=== PATIENT | male | born 1970 | race Caucasian/White ===

== ENCOUNTER 2016-09-24 13:13 | Inpatient (IN) | payer OTHER ==
[2016-09-24 17:11] VITALS: BMI 22.5
--- NOTE | 2016-09-24 18:25 | HP ---
CIWA Score - CIWA Score Nausea/Vomitin-Mild Nausea/No Vomiting Muscle Tremors: 5 Anxiety: 4-Mod. Anxious/Guarded Agitation: 4-Moderately Restless Paroxysmal Sweats: 1-Minimal Palms Moist Orientation: 0-Oriented Tacttile Disturbances: 0-None Auditory Disturbances: 0-None Visual Disturbances: 0-None Headache: 0-None Present CIWA-Ar Total Score: 15 Admission ROS [facility]HS - HPI Chief Complaint: withdrawal sx Allergies/Adverse Reactions: Allergies Allergy/AdvReac Type Severity Reaction Status Date / Time No Known Allergies Allergy Verified 09/24/16 17:44 History of Present Illness: 46 years old male with long history of alcohol nicotine dependence, has copd hypertension hyperlipidemia bph, and depression, longest sobriety 6 months, is admitted to detox Exam Limitations: No Limitations - Ebola screening Have you traveled outside of the country in the last 21 days: No Have you had contact with anyone from an Ebola affected area: No Have you been sick,other than usual withdrawal symptoms: No Do you have a fever: No - Review of Systems Constitutional: Chills, Changes in sleep, Weight Stable EENT: reports: Other (eye glasses) Respiratory: reports: SOB with Exertion, Productive cough Cardiac: reports: No Symptoms Reported GI: reports: Nausea, Poor Fluid Intake, Indigestion, Abdominal cramping : reports: Urgency (bph) Musculoskeletal: reports: Muscle Weakness Integumentary: reports: No Symptoms Reported Neuro: reports: Tremors Endocrine: reports: No Symptoms Reported Hematology: reports: No Symptoms Reported Psychiatric: reports: Judgement Intact, Orientated x3, Depressed Other Systems: Reviewed and Negative Patient History - Patient Medical History Hx Anemia: No Hx Asthma: No Hx Chronic Obstructive Pulmonary Disease (COPD): Yes Hx Cancer: No Hx Cardiac Disorders: No Hx Congestive Heart Failure: No Hx Hypertension: Yes Hx Hypercholesterolemia: Yes Hx Pacemaker: No HX Cerebrovascular Accident: No Hx Seizures: No Hx Dementia: No Hx Diabetes: Yes Hx Gastrointestinal Disorders: No Hx Liver Disease: No Hx Genitourinary Disorders: No Hx Sexually Transmitted Disorders: No Hx Renal Disease (ESRD): No Hx Thyroid Disease: No Hx Human Immunodeficiency Virus (HIV): No Hx Hepatitis C: No Hx Depression: Yes Hx Suicide Attempt: No Hx Bipolar Disorder: No Hx Schizophrenia: No - Patient Surgical History Past Surgical History: No Hx Neurologic Surgery: No Hx Cataract Extraction: No Hx Cardiac Surgery: No Hx Lung Surgery: No Hx Breast Surgery: No Hx Breast Biopsy: No Hx Abdominal Surgery: No Hx Appendectomy: No Hx Cholecystectomy: No Hx Genitourinary Surgery: No Hx Orthopedic Surgery: No - PPD History Previous Implant?: Yes Documented Results: Negative w/o proof Implanted On Prior R Admission?: No PPD to be Administered?: Yes - Smoking Cessation Smoking history: Current every day smoker Have you smoked in the past 12 months: Yes Aproximately how many cigarettes per day: 20 Cigars Per Day: 0 Hx Chewing Tobacco Use: No Initiated information on smoking cessation: Yes 'Breaking Loose' booklet given: 09/24/16 - Substance & Tx. History Hx Alcohol Use: Yes Hx Substance Use: No Substance Use Type: Alcohol Hx Substance Use Treatment: Yes - Substances Abused Alcohol Route: Oral Frequency: Daily Amount used: BEER- 1 CASE Age of first use: 15 Date of Last Use: 09/24/16 Family Disease History - Family Disease History Family Disease History: Diabetes: Father, Mother, Respiratory: Father Other Family History: only child Admission Physical Exam S - Vital Signs Vital Signs: Vital Signs - 24 hr 09/24/16 17:10 Temperature 98.1 F Pulse Rate 92 H Respiratory 20 Rate Blood Pressure 153/99 - Physical General Appearance: Yes: Appropriately Dressed, Moderate Distress, Thin, Tremorous, Irritable, Sweating, Anxious HEENTM: Yes: Hearing grossly Normal, Normal ENT Inspection, Normocephalic, Normal Voice Respiratory: Yes: Chest Non-Tender, Lungs Clear, Normal Breath Sounds, No Respiratory Distress, No Accessory Muscle Use Neck: Yes: Supple, Trachea in good position Breast: Yes: Breasts Symetrical Cardiology: Yes: Regular Rhythm, Regular Rate, S1, S2 Abdominal: Yes: Non Tender, Soft Genitourinary: Yes: Within Normal Limits Back: Yes: Normal Inspection Musculoskeletal: Yes: Gait Steady (cane), Back pain, Muscle Pain, Muscle weakness (left leg) Extremities: Yes: Non-Tender, Tremors, Swelling, Erythema Neurological: Yes: Fully Oriented, Alert, Motor Strength 5/5, Normal Response, Depressed Affect Integumentary: Yes: Warm, Erythema Lymphatic: Yes: Within Normal Limits - Diagnostic (1) Alcohol dependence with uncomplicated withdrawal Current Visit: Yes Status: Acute (2) Nicotine dependence Current Visit: Yes Status: Acute Qualifiers: Nicotine product type: cigarettes Substance use status: in withdrawal Qualified Code(s): F17.213 - Nicotine dependence, cigarettes, with withdrawal (3) COPD (chronic obstructive pulmonary disease) Current Visit: Yes Status: Acute Qualifiers: COPD type: emphysema Emphysema type: other Qualified Code(s): J43.8 - Other emphysema (4) Hypertension Current Visit: Yes Status: Acute Qualifiers: Hypertension type: essential hypertension Qualified Code(s): I10 - Essential (primary) hypertension (5) Diabetes mellitus type II, controlled Current Visit: Yes Status: Acute Qualifiers: Diabetes mellitus complication status: without complication Diabetes mellitus half-way insulin use: without ferry terminal supervisor use Qualified Code(s): E11.9 - Type 2 diabetes mellitus without complications Comment: dietary control (6) Hyperlipidemia Current Visit: Yes Status: Chronic Qualifiers: Hyperlipidemia type: pure hypercholesterolemia Qualified Code(s): E78.0 - Pure hypercholesterolemia (7) BPH (benign prostatic hyperplasia) Current Visit: Yes Status: Acute Qualifiers: Prostatic enlargement morphology: non-nodular Lower urinary tract symptom presence: symptoms present Qualified Code(s): N40.1 - Enlarged prostate with lower urinary tract symptoms (8) Left leg weakness Current Visit: Yes Status: Acute Comment: cane (9) Fall (on) (from) unspecified stairs and steps, sequela Current Visit: Yes Status: Acute Qualifiers: Encounter type: sequela Qualified Code(s): W10.9XXS - Fall (on) ( from) unspecified stairs and steps, sequela Cleared for Admission [facility] - Detox or Rehab [facility] Level of Care: Medically Managed Detox Regimen/Protocol: Librium [facility] Breath Alcohol Content Breath Alcohol Content: 0 Urine Drug Screen - Results Drug Screen Negative: No Urine Drug Screen Results: BZO-Benzodiazepines
[2016-09-24] MEDS ORDERED: MAGNESIUM CITRATE 300 ML BOTTLE PO PRN (18:31)
[2016-09-24] MEDS ORDERED: diphenhydrAMINE HCL 50 MG CAPSULE PO PRN (18:31)
[2016-09-24] MEDS ORDERED: P-EPHED 60MG/TRIPROLIDI 2.5MG TABLET PO PRN (18:31)
[2016-09-24] MEDS ORDERED: chlordiazePOXIDE HCL 25 MG CAPSULE PO PRN (18:31)
[2016-09-24] MEDS ORDERED: hydrOXYzine PAMOATE 50 MG CAPSULE (FP) PO PRN (18:31)
[2016-09-24] MEDS ORDERED: MAGNESIUM HYDROX 2400MG/30ML ORAL SUSPENSION 30 ML CUP PO PRN (18:31)
[2016-09-24] MEDS ORDERED: MENTHOL/PHENOL 1 EACH UD MM PRN (18:31)
[2016-09-24] MEDS ORDERED: guaiFENesin/D-METHORPHAN HB 10 ML UNIT-DOSE CUPS PO PRN (18:31)
[2016-09-24] MEDS ORDERED: NICOTINE POLACRILEX 2 MG GUM BC PRN (18:31)
[2016-09-24] MEDS ORDERED: LOPERAMIDE HCL 2 MG CAPSULE PO PRN (18:31)
[2016-09-24] MEDS ORDERED: MAG HYDROX/AL HYDROX/SIMETH 30 ML UNIT-DOSE CUP PO PRN (18:31)
[2016-09-24] MEDS ORDERED: ALBUTEROL SO4 6.7 GM HFA INHALER IH PRN (18:43)
[2016-09-24] MEDS ORDERED: chlordiazePOXIDE HCL 25 MG CAPSULE PO ONE (19:00)
[2016-09-24] MEDS: LISINOPRIL 5 MG TABLET (FP) PO SCH (19:48)
[2016-09-24] MEDS ORDERED: CEPHALEXIN MONOHYDRATE 500 MG CAPSULE (UD) PO SCH (22:00)
[2016-09-24] MEDS: THIAMINE HCL 100 MG TABLET (FP) PO SCH (22:15)
[2016-09-24] MEDS: chlordiazePOXIDE HCL 25 MG CAPSULE PO SCH (22:15)
[2016-09-24] MEDS: RANITIDINE HCL 150 MG TABLET (FP) PO SCH (22:15)
[2016-09-24] MEDS: CEPHALEXIN MONOHYDRATE 500 MG CAPSULE (UD) PO SCH (22:15)
[2016-09-24] MEDS: BUDESONIDE/FORMETEROL FUMARATE 80/4.5 mcg INHALER IH SCH (22:16)
[2016-09-24] MEDS: FINASTERIDE 5 MG TABLET (FP) PO SCH (22:18)
[2016-09-24 22:38] LABS: URINE APPEARANCE CLEAR; URINE BILIRUBIN NEGATIVE (NEGATIVE); URINE BLOOD NEGATIVE (NEGATIVE); URINE COLOR YELLOW; URINE GLUCOSE (UA) NEGATIVE (NEGATIVE); URINE KETONE NEGATIVE (NEGATIVE); URINE LEUK ESTERASE NEGATIVE (NEGATIVE); URINE NITRITE NEGATIVE (NEGATIVE); URINE UROBILINOGEN 4.0 E.U/dl E.U./dl (0.2-1.0)
[2016-09-24 22:39] LABS: URINE PROTEIN 1+ (NEGATIVE)
[2016-09-24 22:41] LABS: URINE RBC 1 /hpf (0-3); URINE WBC <1 /hpf (3-5)
[2016-09-25] MEDS: chlordiazePOXIDE HCL 25 MG CAPSULE PO SCH ×4 (05:57→22:13)
[2016-09-25] MEDS: ACETAMINOPHEN 325 MG TABLET (FP) PO PRN ×2 (06:20→12:52)
--- NOTE | 2016-09-25 09:42 | PN ---
S CIWA - CIWA Score Nausea/Vomitin Muscle Tremors: 3 Anxiety: 3 Agitation: 2 Paroxysmal Sweats: 3 Orientation: 0-Oriented Tacttile Disturbances: 1-Very Mild Itch/Numbness Auditory Disturbances: 0-None Visual Disturbances: 0-None Headache: 0-None Present CIWA-Ar Total Score: 14 S Progress Note (SOAP) Subjective: interrupted sleep, sweats, anxious Objective: 09/25/16 09:42 Vital Signs Temperature 98.8 F 09/25/16 09:23 Pulse Rate 101 H 09/25/16 09:23 Respiratory Rate 20 09/25/16 09:23 Blood Pressure 148/93 09/25/16 09:23 O2 Sat by Pulse Oximetry (%) Laboratory Tests 09/24/16 09/25/16 21:30 06:14 POC Glucometer 140 Urine Color Yellow Urine Appearance Clear Urine pH 7.0 Ur Specific [place] 1.006 Urine Protein 1+ H Urine Glucose (UA) Negative Urine Ketones Negative Urine Blood Negative Urine Nitrite Negative Urine Bilirubin Negative Urine Urobilinogen 4.0 e.u/dl Ur Leukocyte Esterase Negative Urine RBC 1 Urine WBC <1 pending labs 01/30/17 12:40 pt aox3 in nad ambulating with cane 01/30/17 12:40 01/30/17 12:42 Assessment: 09/25/16 09:42 withdrawl sx's 01/30/17 12:40 Plan: cont. detox increase fluids f/up pending labs
[2016-09-25] MEDS: LISINOPRIL 5 MG TABLET (FP) PO SCH (10:07)
[2016-09-25] MEDS: RANITIDINE HCL 150 MG TABLET (FP) PO SCH ×2 (10:07→22:13)
[2016-09-25] MEDS: ATENOLOL 50 MG TABLET (FP) PO SCH (10:07)
[2016-09-25] MEDS: PRENATAL VITAMINS W/ FOLIC ACID TABLET (FP) PO SCH (10:07)
[2016-09-25] MEDS: TAMSULOSIN HCL 0.4 MG CAP.ER.24H (FP) PO SCH (10:07)
[2016-09-25] MEDS: CEPHALEXIN MONOHYDRATE 500 MG CAPSULE (UD) PO SCH ×2 (10:07→22:13)
[2016-09-25] MEDS: NICOTINE 21 MG/24 HOURS TOPICAL PATCH TD SCH (10:10)
[2016-09-25] MEDS: BUDESONIDE/FORMETEROL FUMARATE 80/4.5 mcg INHALER IH SCH ×2 (10:11→22:14)
[2016-09-25] MEDS: DULoxetine HCL 20 MG CAPSULE.DR (FP) PO SCH (10:17)
[2016-09-25 10:36] LABS: ALBUMIN 4.2 g/dl (3.4-5.0); ANION GAP 7 (8-16); CALCIUM 9.5 mg/dL (8.5-10.1); CO2 28 mmol/L (21-32); CREATININE 0.6 mg/dL (0.7-1.3); GLUCOSE,RANDOM 121 mg/dL (74-106); SGOT/AST 132 U/L (15-37); SGPT/ALT 193 U/L (12-78)
[2016-09-25 10:38] LABS: ALK PHOS 82 U/L (45-117); BILIRUBIN,TOTAL 1.5 mg/dL (0.2-1.0); TOT PROT 8.3 g/dl (6.4-8.2)
[2016-09-25 10:54] LABS: MEAN CELL VOLUME 94.2 fl (80-96); MEAN PLT VOLUME 8.7 fl (7.5-11.1); PLATELET COUNT 77 K/MM3 (134-434); RDW 14.3 % (11.9-15.9); WHITE BLOOD COUNT 4.9 K/mm3 (4.0-10.0)
--- NOTE | 2016-09-25 11:16 | CONSULT ---
[facility] Psychiatric Consult - Data Date of interview: 09/25/16 Admission source: [facility] Identifying data: This is 46 years old male wi8th no psychiatric hospitalization history intoxicated with Alcohol and Nicotine Substance Abuse History: Vistaril 50mg po qhs Medical History: BPH, COPD, DM-2, HTN, Hyperlipidemia Psychiatric History: Patient reports history of anxiety, depression, reports taking prior to admission: Cymbalrta 40mg popqd. Vistaril 50mg po qhs Physical/Sexual Abuse/Trauma History: Denies Additional Comment: Cymbalrta 40mg popqd. Vistaril 50mg po qhs Mental Status Exam - Mental Status Exam Alert and Oriented to: Person Cognitive Function: Fair Patient Appearance: Unkempt Mood: Sad Affect: Flat Patient Behavior: Cooperative Speech Pattern: Appropriate Voice Loudness: Mildly Soft/Quiet Thought Process: Circumstantial Thought Disorder: Being Controlled Hallucinations: Denies Suicidal Ideation: Denies Homicidal Ideation: Denies Insight/Judgement: Fair Sleep: Difficulty falling asleep Appetite: Weight gain Muscle strength/Tone: Mild Hypertonicity Gait/Station: Shuffling Additional Comments: Cymbalrta 40mg popqd. Vistaril 50mg po qhs Psychiatric Findings - Problem List ([place] 1, 2,3) (1) Alcohol dependence with uncomplicated withdrawal Current Visit: Yes Status: Acute (2) Nicotine dependence Current Visit: Yes Status: Acute Qualifiers: Nicotine product type: cigarettes Substance use status: in withdrawal Qualified Code(s): F17.213 - Nicotine dependence, cigarettes, with withdrawal (3) Drug-induced mood disorder Current Visit: Yes Status: Acute - Initial Treatment Plan Initial Treatment Plan: Cymbalrta 40mg popqd. Vistaril 50mg po qhs
--- NOTE | 2016-09-25 12:30 | EKG ---
Test Reason : Blood Pressure : / mmHG Vent. Rate : 094 BPM Atrial Rate : 094 BPM P-R Int : 166 ms QRS Dur : 084 ms QT Int : 374 ms P-R-T Axes : 070 069 075 degrees QTc Int : 467 ms NORMAL SINUS RHYTHM NORMAL ECG NO PREVIOUS ECGS AVAILABLE Confirmed by CLAUDIA LINTON, GALINA ([id number]) on 09/25/2016 12:29:48 PM Referred By: Confirmed By:GALINA TAYLOR MD
--- NOTE | 2016-09-25 14:45 | PN ---
S CIWA - CIWA Score Nausea/Vomitin Muscle Tremors: 3 Anxiety: 3 Agitation: 2 Paroxysmal Sweats: 3 Orientation: 0-Oriented Tacttile Disturbances: 2-Mild Itch/Numbness/Burn Auditory Disturbances: 0-None Visual Disturbances: 0-None Headache: 0-None Present CIWA-Ar Total Score: 15 S Progress Note (SOAP) Subjective: interrupted sleep, sweats, lbp, decreased appetite Objective: 09/25/16 14:44 Vital Signs Temperature 97.9 F 09/25/16 14:05 Pulse Rate 83 09/25/16 14:05 Respiratory Rate 20 09/25/16 14:05 Blood Pressure 124/81 09/25/16 14:05 O2 Sat by Pulse Oximetry (%) Vital Signs Temperature 97.9 F 09/25/16 14:05 Pulse Rate 83 09/25/16 14:05 Respiratory Rate 20 09/25/16 14:05 Blood Pressure 124/81 09/25/16 14:05 O2 Sat by Pulse Oximetry (%) Laboratory Tests 09/24/16 09/25/16 09/25/16 21:30 06:00 06:00 WBC 4.9 RBC 5.23 Hgb 16.7 Hct 49.2 H MCV 94.2 MCHC 34.0 RDW 14.3 Plt Count 77 L MPV 8.7 Sodium 133 L Potassium 4.1 Chloride 98 Carbon Dioxide 28 Anion Gap 7 L BUN 4 L Creatinine 0.6 L Creat Clearance w eGFR > 60 POC Glucometer Random Glucose 121 H Calcium 9.5 Total Bilirubin 1.5 H AST 132 H ALT 193 H Alkaline Phosphatase 82 Total Protein 8.3 H Albumin 4.2 Urine Color Yellow Urine Appearance Clear Urine pH 7.0 Ur Specific [place] 1.006 Urine Protein 1+ H Urine Glucose (UA) Negative Urine Ketones Negative Urine Blood Negative Urine Nitrite Negative Urine Bilirubin Negative Urine Urobilinogen 4.0 e.u/dl Ur Leukocyte Esterase Negative Urine RBC 1 Urine WBC <1 RPR Titer 09/25/16 09/25/16 06:00 06:14 WBC RBC Hgb Hct MCV MCHC RDW Plt Count MPV Sodium Potassium Chloride Carbon Dioxide Anion Gap BUN Creatinine Creat Clearance w eGFR POC Glucometer 140 Random Glucose Calcium Total Bilirubin AST ALT Alkaline Phosphatase Total Protein Albumin Urine Color Urine Appearance Urine pH Ur Specific [place] Urine Protein Urine Glucose (UA) Urine Ketones Urine Blood Urine Nitrite Urine Bilirubin Urine Urobilinogen Ur Leukocyte Esterase Urine RBC Urine WBC RPR Titer Nonreactive pt aox3 in nad ambulating 09/25/16 14:45 Assessment: 09/25/16 14:45 withdrawal sx's Plan: cont. detox increase fluids
[2016-09-25] MEDS: THIAMINE HCL 100 MG TABLET (FP) PO SCH (22:13)
[2016-09-25] MEDS: FINASTERIDE 5 MG TABLET (FP) PO SCH (22:13)
[2016-09-25] MEDS: hydrOXYzine PAMOATE 50 MG CAPSULE (FP) PO SCH (22:13)
[2016-09-26] MEDS: chlordiazePOXIDE HCL 25 MG CAPSULE PO SCH ×3 (05:54→17:59)
[2016-09-26] MEDS: TAMSULOSIN HCL 0.4 MG CAP.ER.24H (FP) PO SCH (08:57)
[2016-09-26] MEDS: IBUPROFEN 400 MG TABLET (FP) PO PRN ×2 (08:58→17:59)
[2016-09-26] MEDS: LIDOCAINE 5% TOPICAL PATCH TP SCH (08:59)
[2016-09-26] MEDS: PRENATAL VITAMINS W/ FOLIC ACID TABLET (FP) PO SCH (10:10)
[2016-09-26] MEDS: ATENOLOL 50 MG TABLET (FP) PO SCH (10:10)
[2016-09-26] MEDS: RANITIDINE HCL 150 MG TABLET (FP) PO SCH ×2 (10:10→22:08)
[2016-09-26 10:11] LABS: SGOT/AST 105 U/L (15-37); SGPT/ALT 152 U/L (12-78)
[2016-09-26] MEDS: NICOTINE 21 MG/24 HOURS TOPICAL PATCH TD SCH (10:11)
[2016-09-26] MEDS: CEPHALEXIN MONOHYDRATE 500 MG CAPSULE (UD) PO SCH ×2 (10:11→22:08)
[2016-09-26] MEDS: DULoxetine HCL 20 MG CAPSULE.DR (FP) PO SCH (10:12)
[2016-09-26] MEDS: LISINOPRIL 5 MG TABLET (FP) PO SCH (10:12)
[2016-09-26] MEDS: BUDESONIDE/FORMETEROL FUMARATE 80/4.5 mcg INHALER IH SCH ×2 (10:12→22:57)
--- NOTE | 2016-09-26 11:53 | PN ---
B[facility] Progress Note (SOAP) Subjective: shakes sweats back pain upset stomach Objective: 09/26/16 11:52 Vital Signs Temperature 97.1 F L 09/26/16 09:43 Pulse Rate 95 H 09/26/16 09:43 Respiratory Rate 18 09/26/16 09:43 Blood Pressure 132/57 09/26/16 09:43 O2 Sat by Pulse Oximetry (%) Laboratory Tests 09/24/16 09/24/16 09/25/16 06:00 21:30 06:00 WBC 4.9 RBC 5.23 Hgb 16.7 Hct 49.2 H MCV 94.2 MCHC 34.0 RDW 14.3 Plt Count 77 L MPV 8.7 Sodium Potassium Chloride Carbon Dioxide Anion Gap BUN Creatinine Creat Clearance w eGFR POC Glucometer Random Glucose Calcium Total Bilirubin AST ALT Alkaline Phosphatase Total Protein Albumin Urine Color Yellow Urine Appearance Clear Urine pH 7.0 Ur Specific [place] 1.006 Urine Protein 1+ H Urine Glucose (UA) Negative Urine Ketones Negative Urine Blood Negative Urine Nitrite Negative Urine Bilirubin Negative Urine Urobilinogen 4.0 e.u/dl Ur Leukocyte Esterase Negative Urine RBC 1 Urine WBC <1 RPR Titer Hepatitis C Antibody <0.1 09/25/16 09/25/16 09/25/16 06:00 06:00 06:14 WBC RBC Hgb Hct MCV MCHC RDW Plt Count MPV Sodium 133 L Potassium 4.1 Chloride 98 Carbon Dioxide 28 Anion Gap 7 L BUN 4 L Creatinine 0.6 L Creat Clearance w eGFR > 60 POC Glucometer 140 Random Glucose 121 H Calcium 9.5 Total Bilirubin 1.5 H AST 132 H ALT 193 H Alkaline Phosphatase 82 Total Protein 8.3 H Albumin 4.2 Urine Color Urine Appearance Urine pH Ur Specific [place] Urine Protein Urine Glucose (UA) Urine Ketones Urine Blood Urine Nitrite Urine Bilirubin Urine Urobilinogen Ur Leukocyte Esterase Urine RBC Urine WBC RPR Titer Nonreactive Hepatitis C Antibody 09/25/16 09/26/16 09/26/16 16:24 05:59 07:00 WBC RBC Hgb Hct MCV MCHC RDW Plt Count MPV Sodium Potassium Chloride Carbon Dioxide Anion Gap BUN Creatinine Creat Clearance w eGFR POC Glucometer 155 134 Random Glucose Calcium Total Bilirubin AST 105 H D ALT 152 H D Alkaline Phosphatase Total Protein Albumin Urine Color Urine Appearance Urine pH Ur Specific [place] Urine Protein Urine Glucose (UA) Urine Ketones Urine Blood Urine Nitrite Urine Bilirubin Urine Urobilinogen Ur Leukocyte Esterase Urine RBC Urine WBC RPR Titer Hepatitis C Antibody repeated labs for ast/alt improving awake/alert lying in bed no acute distress Assessment: 09/26/16 11:52 withdrawal sx Plan: continue detox increase fluids lidocaine patch mom/mylanta prn
[2016-09-26] MEDS: THIAMINE HCL 100 MG TABLET (FP) PO SCH (22:08)
[2016-09-26] MEDS: chlordiazePOXIDE 5 MG CAPSULE PO SCH (22:08)
[2016-09-26] MEDS: hydrOXYzine PAMOATE 50 MG CAPSULE (FP) PO SCH (22:08)
[2016-09-26] MEDS: FINASTERIDE 5 MG TABLET (FP) PO SCH (22:09)
[2016-09-27] MEDS: chlordiazePOXIDE 5 MG CAPSULE PO SCH ×3 (06:16→17:29)
[2016-09-27] MEDS: PRENATAL VITAMINS W/ FOLIC ACID TABLET (FP) PO SCH (10:17)
[2016-09-27] MEDS: DULoxetine HCL 20 MG CAPSULE.DR (FP) PO SCH (10:17)
[2016-09-27] MEDS: LIDOCAINE 5% TOPICAL PATCH TP SCH (10:17)
[2016-09-27] MEDS: RANITIDINE HCL 150 MG TABLET (FP) PO SCH ×2 (10:18→22:13)
[2016-09-27] MEDS: TAMSULOSIN HCL 0.4 MG CAP.ER.24H (FP) PO SCH (10:18)
[2016-09-27] MEDS: LISINOPRIL 5 MG TABLET (FP) PO SCH (10:18)
[2016-09-27] MEDS: ATENOLOL 50 MG TABLET (FP) PO SCH (10:18)
[2016-09-27] MEDS: NICOTINE 21 MG/24 HOURS TOPICAL PATCH TD SCH (10:18)
[2016-09-27] MEDS: CEPHALEXIN MONOHYDRATE 500 MG CAPSULE (UD) PO SCH ×2 (10:18→22:12)
[2016-09-27] MEDS: BUDESONIDE/FORMETEROL FUMARATE 80/4.5 mcg INHALER IH SCH ×2 (10:19→22:29)
[2016-09-27] MEDS: IBUPROFEN 400 MG TABLET (FP) PO PRN ×2 (10:22→22:15)
--- NOTE | 2016-09-27 10:37 | PN ---
B[facility] Progress Note (SOAP) Subjective: poor sleep, shaky, gi upset Objective: 09/27/16 10:36 Vital Signs - 24 hr 09/26/16 09/26/16 09/26/16 15:00 17:52 22:10 Temperature 98.1 F 98.2 F 98.0 F Pulse Rate 79 76 75 Respiratory 18 18 18 Rate Blood Pressure 158/65 110/58 130/72 09/27/16 09/27/16 09/27/16 00:30 03:30 06:45 Temperature 96.9 F L Pulse Rate 76 Respiratory 18 18 18 Rate Blood Pressure 112/65 09/27/16 09:43 Temperature 96.9 F L Pulse Rate 81 Respiratory 18 Rate Blood Pressure 125/74 Laboratory Tests 09/24/16 09/24/16 09/25/16 06:00 21:30 06:00 WBC 4.9 RBC 5.23 Hgb 16.7 Hct 49.2 H MCV 94.2 MCHC 34.0 RDW 14.3 Plt Count 77 L MPV 8.7 Sodium Potassium Chloride Carbon Dioxide Anion Gap BUN Creatinine Creat Clearance w eGFR POC Glucometer Random Glucose Calcium Total Bilirubin AST ALT Alkaline Phosphatase Total Protein Albumin Urine Color Yellow Urine Appearance Clear Urine pH 7.0 Ur Specific [place] 1.006 Urine Protein 1+ H Urine Glucose (UA) Negative Urine Ketones Negative Urine Blood Negative Urine Nitrite Negative Urine Bilirubin Negative Urine Urobilinogen 4.0 e.u/dl Ur Leukocyte Esterase Negative Urine RBC 1 Urine WBC <1 RPR Titer Hepatitis C Antibody <0.1 09/25/16 09/25/16 09/25/16 06:00 06:00 06:14 WBC RBC Hgb Hct MCV MCHC RDW Plt Count MPV Sodium 133 L Potassium 4.1 Chloride 98 Carbon Dioxide 28 Anion Gap 7 L BUN 4 L Creatinine 0.6 L Creat Clearance w eGFR > 60 POC Glucometer 140 Random Glucose 121 H Calcium 9.5 Total Bilirubin 1.5 H AST 132 H ALT 193 H Alkaline Phosphatase 82 Total Protein 8.3 H Albumin 4.2 Urine Color Urine Appearance Urine pH Ur Specific [place] Urine Protein Urine Glucose (UA) Urine Ketones Urine Blood Urine Nitrite Urine Bilirubin Urine Urobilinogen Ur Leukocyte Esterase Urine RBC Urine WBC RPR Titer Nonreactive Hepatitis C Antibody 09/25/16 09/26/16 09/26/16 16:24 05:59 07:00 WBC RBC Hgb Hct MCV MCHC RDW Plt Count MPV Sodium Potassium Chloride Carbon Dioxide Anion Gap BUN Creatinine Creat Clearance w eGFR POC Glucometer 155 134 Random Glucose Calcium Total Bilirubin AST 105 H D ALT 152 H D Alkaline Phosphatase Total Protein Albumin Urine Color Urine Appearance Urine pH Ur Specific [place] Urine Protein Urine Glucose (UA) Urine Ketones Urine Blood Urine Nitrite Urine Bilirubin Urine Urobilinogen Ur Leukocyte Esterase Urine RBC Urine WBC RPR Titer Hepatitis C Antibody 09/26/16 09/27/16 16:31 06:18 WBC RBC Hgb Hct MCV MCHC RDW Plt Count MPV Sodium Potassium Chloride Carbon Dioxide Anion Gap BUN Creatinine Creat Clearance w eGFR POC Glucometer 144 128 Random Glucose Calcium Total Bilirubin AST ALT Alkaline Phosphatase Total Protein Albumin Urine Color Urine Appearance Urine pH Ur Specific [place] Urine Protein Urine Glucose (UA) Urine Ketones Urine Blood Urine Nitrite Urine Bilirubin Urine Urobilinogen Ur Leukocyte Esterase Urine RBC Urine WBC RPR Titer Hepatitis C Antibody Assessment: 09/27/16 10:37 ongoing withdrawal Plan: continue detox protocol
[2016-09-27] MEDS: hydrOXYzine PAMOATE 50 MG CAPSULE (FP) PO SCH (22:12)
[2016-09-27] MEDS: THIAMINE HCL 100 MG TABLET (FP) PO SCH (22:12)
[2016-09-27] MEDS: chlordiazePOXIDE HCL 10 MG CAPSULE PO SCH (22:13)
[2016-09-27] MEDS: FINASTERIDE 5 MG TABLET (FP) PO SCH (22:22)
[2016-09-28] MEDS: chlordiazePOXIDE HCL 10 MG CAPSULE PO SCH (06:18)
--- NOTE | 2016-09-28 09:01 | PN ---
BHS Progress Note (SOAP) Subjective: no complaints, r knee pain old/chronic s/p trauma Objective: 09/28/16 08:57 Vital Signs - 8 hr 09/28/16 06:00 Temperature 97.3 F L Pulse Rate 68 Respiratory 18 Rate Blood Pressure 132/74 Laboratory Tests 09/24/16 09/24/16 09/25/16 06:00 21:30 06:00 WBC 4.9 RBC 5.23 Hgb 16.7 Hct 49.2 H MCV 94.2 MCHC 34.0 RDW 14.3 Plt Count 77 L MPV 8.7 Sodium Potassium Chloride Carbon Dioxide Anion Gap BUN Creatinine Creat Clearance w eGFR POC Glucometer Random Glucose Calcium Total Bilirubin AST ALT Alkaline Phosphatase Total Protein Albumin Urine Color Yellow Urine Appearance Clear Urine pH 7.0 Ur Specific [place] 1.006 Urine Protein 1+ H Urine Glucose (UA) Negative Urine Ketones Negative Urine Blood Negative Urine Nitrite Negative Urine Bilirubin Negative Urine Urobilinogen 4.0 e.u/dl Ur Leukocyte Esterase Negative Urine RBC 1 Urine WBC <1 RPR Titer Hepatitis C Antibody <0.1 09/25/16 09/25/16 09/25/16 06:00 06:00 06:14 WBC RBC Hgb Hct MCV MCHC RDW Plt Count MPV Sodium 133 L Potassium 4.1 Chloride 98 Carbon Dioxide 28 Anion Gap 7 L BUN 4 L Creatinine 0.6 L Creat Clearance w eGFR > 60 POC Glucometer 140 Random Glucose 121 H Calcium 9.5 Total Bilirubin 1.5 H AST 132 H ALT 193 H Alkaline Phosphatase 82 Total Protein 8.3 H Albumin 4.2 Urine Color Urine Appearance Urine pH Ur Specific [place] Urine Protein Urine Glucose (UA) Urine Ketones Urine Blood Urine Nitrite Urine Bilirubin Urine Urobilinogen Ur Leukocyte Esterase Urine RBC Urine WBC RPR Titer Nonreactive Hepatitis C Antibody 09/25/16 09/26/16 09/26/16 16:24 05:59 07:00 WBC RBC Hgb Hct MCV MCHC RDW Plt Count MPV Sodium Potassium Chloride Carbon Dioxide Anion Gap BUN Creatinine Creat Clearance w eGFR POC Glucometer 155 134 Random Glucose Calcium Total Bilirubin AST 105 H D ALT 152 H D Alkaline Phosphatase Total Protein Albumin Urine Color Urine Appearance Urine pH Ur Specific [place] Urine Protein Urine Glucose (UA) Urine Ketones Urine Blood Urine Nitrite Urine Bilirubin Urine Urobilinogen Ur Leukocyte Esterase Urine RBC Urine WBC RPR Titer Hepatitis C Antibody 09/26/16 09/27/16 09/27/16 16:31 06:18 16:36 WBC RBC Hgb Hct MCV MCHC RDW Plt Count MPV Sodium Potassium Chloride Carbon Dioxide Anion Gap BUN Creatinine Creat Clearance w eGFR POC Glucometer 144 128 138 Random Glucose Calcium Total Bilirubin AST ALT Alkaline Phosphatase Total Protein Albumin Urine Color Urine Appearance Urine pH Ur Specific [place] Urine Protein Urine Glucose (UA) Urine Ketones Urine Blood Urine Nitrite Urine Bilirubin Urine Urobilinogen Ur Leukocyte Esterase Urine RBC Urine WBC RPR Titer Hepatitis C Antibody 09/28/16 06:17 WBC RBC Hgb Hct MCV MCHC RDW Plt Count MPV Sodium Potassium Chloride Carbon Dioxide Anion Gap BUN Creatinine Creat Clearance w eGFR POC Glucometer 122 Random Glucose Calcium Total Bilirubin AST ALT Alkaline Phosphatase Total Protein Albumin Urine Color Urine Appearance Urine pH Ur Specific [place] Urine Protein Urine Glucose (UA) Urine Ketones Urine Blood Urine Nitrite Urine Bilirubin Urine Urobilinogen Ur Leukocyte Esterase Urine RBC Urine WBC RPR Titer Hepatitis C Antibody hyperglycemia, elevated lfts Assessment: 09/28/16 08:59 completed detox, diet controlled diabetes, alcohol hepatitis, lfts trending down Plan: d/c today, f/u PCP for abnormal bloodwork, reviewed labs wit patient anorexia, secondary to substance use, [id number] advice given, unintententional wt loss., f /u PCP
--- NOTE | 2016-09-28 09:07 | DS ---
[facility] Detox Discharge Summary Admission Date: 09/24/16 Discharge Date: 09/28/16 - History Present History: Alcohol Dependence Pertinent Past History: BPH, COPD, anxiety, depression and insomnia, anorexia, wt loss, anemia - Physical Exam Results Vital Signs: Vital Signs Temperature 97.3 F L 09/28/16 06:00 Pulse Rate 68 09/28/16 06:00 Respiratory Rate 18 09/28/16 06:00 Blood Pressure 132/74 09/28/16 06:00 O2 Sat by Pulse Oximetry (%) Pertinent Admission Physical Exam Findings: withdrawal sx - Treatment Hospital Course: Detox Protocol Followed, Detoxed Safely, Responded well, Discharged Condition Good, Rehab Referral Accepted - Medication Discharge Medications: Ambulatory Orders Duloxetine HCl [Cymbalta -] 20 mg PO DAILY 09/24/16 Duloxetine HCl [Cymbalta -] 40 mg PO DAILY #30 capsule. 09/25/16 Atenolol [Tenormin -] 100 mg PO DAILY #30 tablet 09/28/16 Cephalexin Monohydrate [Keflex -] 500 mg PO BID #10 capsule 09/28/16 Finasteride [Proscar -] 5 mg PO DAILY #30 tablet 09/28/16 Hydroxyzine Pamoate [Vistaril -] 50 mg PO PRN #30 capsule 09/28/16 Lidocaine 5% Patch [Lidoderm -] 1 patch TP DAILY #30 patch 09/28/16 Lisinopril [Prinivil] 5 mg PO DAILY #30 tablet 09/28/16 Omeprazole 40 mg PO DAILY #30 capsule. 09/28/16 Tamsulosin HCl [Flomax -] 0.4 mg PO DAILY #30 cap.er.24h 09/28/16 - Diagnosis (1) Alcohol dependence with uncomplicated withdrawal Current Visit: Yes Status: Acute (2) BPH (benign prostatic hyperplasia) Current Visit: Yes Status: Acute Qualifiers: Prostatic enlargement morphology: non-nodular Lower urinary tract symptom presence: symptoms present Qualified Code(s): N40.1 - Enlarged prostate with lower urinary tract symptoms (3) COPD (chronic obstructive pulmonary disease) Current Visit: Yes Status: Acute Qualifiers: COPD type: emphysema Emphysema type: other Qualified Code(s): J43.8 - Other emphysema (4) Diabetes mellitus type II, controlled Current Visit: Yes Status: Acute Qualifiers: Diabetes mellitus complication status: without complication Diabetes mellitus snf insulin use: without snf use Qualified Code(s): E11.9 - Type 2 diabetes mellitus without complications (5) Drug-induced mood disorder Current Visit: Yes Status: Acute (6) Fall (on) (from) unspecified stairs and steps, sequela Current Visit: Yes Status: Acute Qualifiers: Encounter type: sequela Qualified Code(s): W10.9XXS - Fall (on) ( from) unspecified stairs and steps, sequela (7) Hypertension Current Visit: Yes Status: Acute Qualifiers: Hypertension type: essential hypertension Qualified Code(s): I10 - Essential (primary) hypertension (8) Left leg weakness Current Visit: Yes Status: Acute (9) Nicotine dependence Current Visit: Yes Status: Acute Qualifiers: Nicotine product type: cigarettes Substance use status: in withdrawal Qualified Code(s): F17.213 - Nicotine dependence, cigarettes, with withdrawal (10) Hyperlipidemia Current Visit: Yes Status: Chronic Qualifiers: Hyperlipidemia type: pure hypercholesterolemia Qualified Code(s): E78.0 - Pure hypercholesterolemia - AMA Did Patient Leave Against Medical Advice: No
[2016-09-28 10:14] VITALS: BP 123/74; PULSE 80; TEMP 97.5
== END 2016-09-28 09:33 | disposition home or self-care (01) | DRG 775 ==
LOC: YASAS 13:13 → Y6N 18:36
PROVIDERS: ADMIT Internal Medicine Addiction Medicine; ATTEND Internal Medicine Addiction Medicine
PROC: HZ2ZZZZ Detoxification Services for Substance Abuse Treatment (ICD-10-PCS; principal; 2016-09-24)
DX: F10.230 Alcohol dependence with withdrawal, uncomplicated (principal); F17.210 Nicotine dependence, cigarettes, uncomplicated; F19.24 Other psychoactive substance dependence with psychoactive substance-induced mood disorder; N40.1 Benign prostatic hyperplasia with lower urinary tract symptoms; J43.8 Other emphysema; E11.65 Type 2 diabetes mellitus with hyperglycemia; E78.5 Hyperlipidemia, unspecified; I10 Essential (primary) hypertension; R94.5 Abnormal results of liver function studies; K70.10 Alcoholic hepatitis without ascites; M62.81 Muscle weakness (generalized); W10.9XXS Fall (on) (from) unspecified stairs and steps, sequela
CPT/HCPCS: 36415; 80053; 81003; 81015; 84450; 84460; 85027; 86593; 86803; 93005; 93010

== ENCOUNTER 2017-05-29 10:58 | Emergency (ER) | payer OTHER ==
[2017-05-29 11:03] VITALS: BP 153/92; PULSE 99; TEMP 98.6; BMI 23.7
--- NOTE | 2017-05-29 12:48 | PDOC ---
History of Present Illness - General Chief Complaint: Injury Stated Complaint: LT WRIST PAIN Time Seen by Provider: 05/29/17 12:33 History Source: Patient Exam Limitations: No Limitations - History of Present Illness Initial Comments: 05/29/17 13:03 Chief complaint: Left wrist and left shoulder pain, fall 4 days ago History of present illness: Patient is a 46-year-old male with a history of hypertension, COPD, GERD, hemorrhoids, hyperlipidemia, here today complaining of left shoulder and left wrist pain since falling with his left hand stretched outward or days ago. Patient has noticeable swelling to his left dorsal wrist and hand. Patient has decreased range of motion of left wrist. Patient denies any numbness of his left arm. Patient denies hitting his head or any loss of consciousness. Occurred: reports: other (4 days ago) Severity: reports: severe (left wrist ) Pain Location: reports: upper extremity (left shoulder, left wrist/hand ) Method of Injury: Yes: fall Modifying Factors: improves with: None Loss of Consciousness: no loss of consciousness Past History - Past Medical History Allergies/Adverse Reactions: Allergies Allergy/AdvReac Type Severity Reaction Status Date / Time No Known Allergies Allergy Verified 05/29/17 11:00 Home Medications: Ambulatory Orders Duloxetine HCl [Cymbalta -] 20 mg PO DAILY 09/24/16 Duloxetine HCl [Cymbalta -] 40 mg PO DAILY #30 capsule. 09/25/16 Atenolol [Tenormin -] 100 mg PO DAILY #30 tablet 09/28/16 Cephalexin Monohydrate [Keflex -] 500 mg PO BID #10 capsule 09/28/16 Finasteride [Proscar -] 5 mg PO DAILY #30 tablet 09/28/16 Hydroxyzine Pamoate [Vistaril -] 50 mg PO PRN #30 capsule 09/28/16 Lidocaine 5% Patch [Lidoderm -] 1 patch TP DAILY #30 patch 09/28/16 Lisinopril [Prinivil] 5 mg PO DAILY #30 tablet 09/28/16 Omeprazole 40 mg PO DAILY #30 capsule. 09/28/16 Tamsulosin HCl [Flomax -] 0.4 mg PO DAILY #30 cap.er.24h 09/28/16 Oxycodone HCl/Acetaminophen [Percocet 5-325 mg Tablet] 1 tab PO Q6H PRN #12 tab MDD 4 05/29/17 Anemia: No Asthma: No Cancer: No Cardiac Disorders: No CVA: No COPD: Yes CHF: No Dementia: No Diabetes: Yes GI Disorders: Yes (gerd) Disorders: No HTN: Yes Hypercholesterolemia: Yes Kidney Stones: No Liver Disease: No Seizures: No Thyroid Disease: No Other medical history: BPH, in rehab for alcohol abuse - Surgical History Abdominal Surgery: No Appendectomy: No Cardiac Surgery: No Cholecystectomy: No Lung Surgery: No Neurologic Surgery: No Orthopedic Surgery: No - Reproductive History Testicular Surgery: No - Immunization History Immunization Up to Date: Yes - Suicide/Smoking/Psychosocial Hx Smoking History: Current every day smoker Have you smoked in the past 12 months: Yes Number of Cigarettes Smoked Daily: 30 Cigars Per Day: 0 Information on smoking cessation initiated: No 'Breaking Loose' booklet given: 09/24/16 Hx Alcohol Use: Yes Drug/Substance Use Hx: No Substance Use Type: Alcohol Hx Substance Use Treatment: Yes Trauma Specific PMHX - Complaint Specific PMHX Arthritis: No Review of Systems - Review of Systems Able to Perform ROS?: Yes Constitutional: No: Symptoms Reported HEENTM: No: Symptoms Reported Respiratory: No: Symptoms reported Cardiac (ROS): No: Symptoms Reported ABD/GI: No: Symptoms Reported : No: Symptoms Reported Musculoskeletal: Yes: Joint Pain (left shoulder, left wrist, hand ), Joint Swelling (left dorsal wrist, hand) Integumentary: Yes: Other (left hand, wrist swelling ) Neurological: No: Symptoms reported *Physical Exam - Vital Signs Last Vital Signs Temp Pulse Resp BP Pulse Ox 98.6 F 99 H 20 153/92 100 05/29/17 11:00 05/29/17 11:00 05/29/17 11:00 05/29/17 11:00 05/29/17 11:00 - Physical Exam General Appearance: Yes: Appropriately Dressed Neck: negative: Tender, Decreased range of motion, Lymphadenopathy (R), Lymphadenopathy (L), Rigidity, Tender lateral, Tender midline Respiratory/Chest: positive: Lungs Clear, Normal Breath Sounds Cardiovascular: positive: Regular Rhythm, Regular Rate, S1, S2 Comments:: 05/29/17 12:50 radial pulse left 4 + Musculoskeletal: positive: Normal Inspection. negative: CVA Tenderness, CVA Tenderness (R), CVA Tenderness (L), Decreased Range of Motion, Vertebral Tenderness Extremity: positive: Normal Capillary Refill, Tender (left dorsal wrist, left shoulder), Swelling (left dorsal wrist, hand ). negative: Normal Inspection ( left wrist, hand ), Normal Range of Motion (left wrist) Integumentary: positive: Normal Color, Swelling (left wrist/hand ) Neurologic: positive: Normal Response, Respond to painful stimul (left hand/ wrist/forearm ), Responsive. negative: Motor Strength 5/5 (decreased motor/ strength left wrist), Numbness, Sensory Deficit (left hand wrist) Procedures - Consent Consent obtained: From Patient - Splinting Splint Location: Left: Forearm Pre-Proc Neuro Vasc Exam: normal Splint Type: Yes: Long Arm (posterior ) Post-Proc Neuro Vasc Exam: normal [place] Bandage: 4" Sling: Yes (left ) Medical Decision Making - Medical Decision Making 05/29/17 13:10 Patient is a 46-year-old male with a history of hypertension, COPD, GERD, hemorrhoids, hyperlipidemia, here today complaining of left shoulder and left wrist pain since falling with his left hand stretched outward or days ago. Patient has noticeable swelling to his left dorsal wrist and hand. Patient has decreased range of motion of left wrist. Patient denies any numbness of his left arm. Patient denies hitting his head or any loss of consciousness. He took ibuprofen at 10:30 this morning. Rule out fracture left wrist hand Rule out left shoulder bony abnormality Plan: X-ray left wrist and hand distal left ulnar transverse fracture no other fractures per Dr. Go X-ray left forearm left ulnar transverse fracture per Dr. Go X-ray left shoulder no fracture or dislocation noted per Dr. Go Posterior splint applied to left arm sling applied Will have patient follow up with orthopedist Percocet 5 mg/325 mg one tab every 6 hours as needed for severe pain # 12 tabs Search Terms: Eliezer Washington, 1970 Search Date: 05/29/2017 02:30:45 PM The Drug Utilization Report below displays all of the controlled substance prescriptions, if any, that your patient has filled in the last twelve months. The information displayed on this report is compiled from pharmacy submissions to the Department, and accurately reflects the information as submitted by the pharmacies. This report was requested by: Mary Oropeza | Reference #: [id number] Others' Prescriptions Patient Name: Eliezer Washington Date: 1970 Address: [address] [place] [address] Sex: Male Rx Written Rx Dispensed Drug Quantity Days Supply Prescriber Name 05/07/2017 05/08/2017 lorazepam 1 mg tablet 16 8 Emmy Gomez [facility] checked 05/29/17 14:26 05/29/17 14:29 *DC/Admit/Observation/Transfer Diagnosis at time of Disposition: Fall Qualifiers: Encounter type: initial encounter Qualified Code(s): W19.XXXA - Unspecified fall, initial encounter Fracture, ulna, shaft Qualifiers: Encounter type: initial encounter Fracture type: closed Fracture morphology: transverse Fracture alignment: displaced Laterality: left Qualified Code(s): S52.222A - Displaced transverse fracture of shaft of left ulna, initial encounter for closed fracture Shoulder pain, left Qualifiers: Chronicity: acute Qualified Code(s): M25.512 - Pain in left shoulder - Discharge Dispostion Disposition: HOME Condition at time of disposition: Stable - Referrals Referrals: Nick Abarca MD [Staff Physician] - - Patient Instructions Additional Instructions: Follow up with orthopedist as soon as possible Keep Ortho-Glass splint on left arm and use sling during the day may take off at night and elevate him pillow Return to emergency room if any swelling of your hand or discoloration or numbness or any new symptoms develop Patient voiced understanding of discharge instructions and all questions were answered
== END 2017-05-29 14:49 | disposition home or self-care (01) ==
LOC: JERFT 10:58
PROC: 2W3DX1Z Immobilization of Left Lower Arm using Splint (ICD-10-PCS; principal; 2017-05-29)
DX: S52.222A Displaced transverse fracture of shaft of left ulna, initial encounter for closed fracture (principal); M25.512 Pain in left shoulder; W18.39XA Other fall on same level, initial encounter; Y93.89 Activity, other specified; Y92.9 Unspecified place or not applicable; J44.9 Chronic obstructive pulmonary disease, unspecified; K21.9 Gastro-esophageal reflux disease without esophagitis; E78.5 Hyperlipidemia, unspecified
CPT/HCPCS: 73030-TC-LT; 73090-TC-LT; 73110-TC-LT; 73130-TC-LT; 99281-25

== ENCOUNTER 2019-02-12 16:31 | Inpatient (IN) | payer OTHER | END 2019-02-16 15:34 | disposition home or self-care (01) | LOC: J5S 02-13 00:12 → JER 16:31 → JERBED 19:55 ==

== ENCOUNTER 2020-09-08 16:57 | Emergency (ER) | payer OTHER | END 2020-09-08 20:29 | disposition home or self-care (01) | LOC: JVIRT 16:57 | DX: Z20.822 Contact with and (suspected) exposure to COVID-19 (principal) | CPT/HCPCS: C9803; Q3014-GT; U0003 ==

== ENCOUNTER 2020-12-14 21:03 | Inpatient (IN) | payer OTHER ==
[2020-12-14 21:19] VITALS: BMI 25.0
[2020-12-14 23:03] LABS: BASO % 0.8 % (0-2.0); EOS % 7.9 % (0-4.5); HEMATOCRIT 45.7 % (35.4-49); HEMOGLOBIN 16.3 GM/dL (11.7-16.9); LYMPH % 30.6 % (8-40); MCHC 35.7 g/dl (32.0-35.9); MEAN CELL VOLUME 95.3 fl (80-96); MEAN PLT VOLUME 8.2 fl (7.5-11.1); MONO % 14.4 % (3.8-10.2); NEUT % 46.3 % (42.8-82.8); PLATELET COUNT 125 K/MM3 (134-434); RDW 14.1 % (11.9-15.9)
[2020-12-14 23:08] LABS: CHLORIDE 83 mmol/L (98-107)
[2020-12-14 23:10] LABS: ALBUMIN 3.9 g/dl (3.4-5.0); BLOOD UREA NITROGEN 5.1 mg/dL (7-18); CALCIUM 9.3 mg/dL (8.5-10.1); CO2 26 mmol/L (21-32)
[2020-12-14 23:11] LABS: GLUCOSE,RANDOM 107 mg/dL (74-106)
[2020-12-14 23:13] LABS: CREATININE 0.6 mg/dL (0.55-1.3); SGOT/AST 93 U/L (15-37); SGPT/ALT 117 U/L (13-61)
[2020-12-14 23:15] LABS: BILIRUBIN,TOTAL 0.6 mg/dL (0.2-1)
[2020-12-14 23:16] LABS: ALK PHOS 49 U/L (45-117)
[2020-12-14 23:26] LABS: ANION GAP 9 MMOL/L (8-16); SODIUM 118 mmol/L (136-145)
[2020-12-15] MEDS ORDERED: chlordiazePOXIDE HCL 25 MG CAPSULE PO ONE (00:24)
[2020-12-15] MEDS ORDERED: chlordiazePOXIDE HCL 25 MG CAPSULE ONE ×3 (00:50→08:11)
[2020-12-15] MEDS ORDERED: SODIUM CHLORIDE 1,000 ML IV SCH ×2 (01:45→08:30)
[2020-12-15] MEDS ORDERED: FOLIC ACID INJECTION - 1 MG, THIAMINE HCL 100 MG, MULTIVIT INJECTION ADULT 10 ML in SOD... IVPB ONE (05:34)
[2020-12-15] MEDS ORDERED: chlordiazePOXIDE HCL 25 MG CAPSULE PO PRN (05:45)
[2020-12-15] MEDS: chlordiazePOXIDE HCL 25 MG CAPSULE PO SCH ×4 (05:45→22:27)
[2020-12-15 06:07] LABS: BASO % 0.6 % (0-2.0); EOS % 8.3 % (0-4.5); HEMATOCRIT 44.5 % (35.4-49); HEMOGLOBIN 16.2 GM/dL (11.7-16.9); MCH 34.3 pg (25.7-33.7); MCHC 36.5 g/dl (32.0-35.9); MONO % 13.1 % (3.8-10.2); PLATELET COUNT 121 K/MM3 (134-434); RBC 4.73 M/mm3 (4.00-5.60); RDW 14.1 % (11.9-15.9); WHITE BLOOD COUNT 5.2 K/mm3 (4.0-10.0)
[2020-12-15 06:14] LABS: CALCIUM 9.3 mg/dL (8.5-10.1)
[2020-12-15 06:18] LABS: CREATININE 0.7 mg/dL (0.55-1.3)
[2020-12-15 06:19] LABS: BILIRUBIN,TOTAL 0.8 mg/dL (0.2-1); TOT PROT 7.8 g/dl (6.4-8.2)
[2020-12-15 07:29] LABS: METHADONE, UR NEGATIVE ng/ml (CUTOFF=300)
[2020-12-15 07:30] LABS: PHENCYCLIDINE,URINE NEGATIVE ng/ml (CUTOFF=25); URINE AMPHETAMINES NEGATIVE ng/ml (CUTOFF=500)
[2020-12-15 07:31] LABS: COCAINE, UR NEGATIVE ng/ml (CUTOFF=300); URINE BARBITURATES NEGATIVE ng/ml (CUTOFF=200)
[2020-12-15 07:38] LABS: URINE BENZODIAZEPINES POSITIVE ng/ml (CUTOFF=200)
[2020-12-15 07:39] LABS: OPIATES, URI POSITIVE ng/ml (CUTOFF=300)
[2020-12-15 08:04] LABS: OSMOLALITY,SERUM 288 mosm/kg (278-305)
[2020-12-15] MEDS ORDERED: MULTIVITAMINS (DAILY MVI) TABLET (FP) ONE (08:11)
[2020-12-15] MEDS ORDERED: FOLIC ACID 1 MG TABLET (FP) ONE (08:11)
[2020-12-15] MEDS ORDERED: THIAMINE HCL 100 MG TABLET (FP) ONE (08:11)
[2020-12-15] MEDS: FOLIC ACID 1 MG TABLET (FP) PO SCH (09:09)
[2020-12-15] MEDS: BUDESONIDE/FORMETEROL FUMARATE 160/4.5 mcg INHALER IH SCH ×2 (09:09→21:43)
[2020-12-15] MEDS: THIAMINE HCL 100 MG TABLET (FP) PO SCH (09:09)
[2020-12-15] MEDS: MULTIVITAMINS (DAILY MVI) TABLET (FP) PO SCH (09:09)
[2020-12-15] MEDS ORDERED: BUDESONIDE/FORMETEROL FUMARATE 160/4.5 mcg INHALER IH SCH (10:00)
[2020-12-15] MEDS ORDERED: PT OWN MED DRAWER 7, Y5N ONE (10:23)
[2020-12-15] MEDS: ENOXAPARIN NA (PORCINE) 40 MG/0.4 ML DISP.SYRIN SQ SCH (14:01)
[2020-12-15 16:21] LABS: CALCIUM 9.6 mg/dL (8.5-10.1)
[2020-12-15 16:22] LABS: ALBUMIN 3.9 g/dl (3.4-5.0); BLOOD UREA NITROGEN 8.6 mg/dL (7-18)
[2020-12-15 16:25] LABS: CREATININE 0.7 mg/dL (0.55-1.3)
[2020-12-15 16:27] LABS: BILIRUBIN,TOTAL 1.1 mg/dL (0.2-1); TOT PROT 7.7 g/dl (6.4-8.2)
[2020-12-15] MEDS: NICOTINE 21 MG/24 HOURS TOPICAL PATCH TD SCH (18:20)
[2020-12-15] MEDS: ROSUVASTATIN CA 5 MG TABLET (FP) PO SCH (21:19)
[2020-12-16] MEDS: chlordiazePOXIDE HCL 25 MG CAPSULE PO SCH ×4 (04:43→22:31)
[2020-12-16] MEDS: BUDESONIDE/FORMETEROL FUMARATE 160/4.5 mcg INHALER IH SCH ×2 (09:50→21:35)
[2020-12-16] MEDS: DULoxetine HCL 30 MG CAPSULE.DR PO SCH (09:52)
[2020-12-16] MEDS: MULTIVITAMINS (DAILY MVI) TABLET (FP) PO SCH (09:53)
[2020-12-16] MEDS: LISINOPRIL 10 MG TABLET PO SCH (09:53)
[2020-12-16] MEDS: FINASTERIDE 5 MG TABLET (FP) PO SCH (09:53)
[2020-12-16] MEDS: PANTOPRAZOLE 40 MG TABLET PO SCH (09:53)
[2020-12-16] MEDS: TAMSULOSIN HCL 0.4 MG CAP PO SCH (09:53)
[2020-12-16] MEDS: ENOXAPARIN NA (PORCINE) 40 MG/0.4 ML DISP.SYRIN SQ SCH (09:54)
[2020-12-16] MEDS: THIAMINE HCL 100 MG TABLET (FP) PO SCH (09:54)
[2020-12-16] MEDS: FOLIC ACID 1 MG TABLET (FP) PO SCH (09:54)
[2020-12-16] MEDS: NICOTINE 21 MG/24 HOURS TOPICAL PATCH TD SCH (09:54)
[2020-12-16 16:42] LABS: BASO % 0.8 % (0-2.0); EOS % 6.1 % (0-4.5); HEMATOCRIT 43.4 % (35.4-49); LYMPH % 24.6 % (8-40); MCH 33.6 pg (25.7-33.7); MCHC 34.6 g/dl (32.0-35.9); MEAN CELL VOLUME 96.9 fl (80-96); MEAN PLT VOLUME 8.4 fl (7.5-11.1); MONO % 13.8 % (3.8-10.2); NEUT % 54.7 % (42.8-82.8); PLATELET COUNT 111 K/MM3 (134-434); RBC 4.47 M/mm3 (4.00-5.60); RDW 13.9 % (11.9-15.9); WHITE BLOOD COUNT 4.3 K/mm3 (4.0-10.0)
[2020-12-16 16:59] LABS: CALCIUM 9.4 mg/dL (8.5-10.1)
[2020-12-16 17:00] LABS: ALBUMIN 3.6 g/dl (3.4-5.0); BLOOD UREA NITROGEN 17.8 mg/dL (7-18)
[2020-12-16 17:05] LABS: BILIRUBIN,TOTAL 1.1 mg/dL (0.2-1); TOT PROT 7.2 g/dl (6.4-8.2)
[2020-12-16] MEDS: ROSUVASTATIN CA 5 MG TABLET (FP) PO SCH (21:35)
[2020-12-17] MEDS ORDERED: chlordiazePOXIDE HCL 10 MG CAPSULE PO PRN
[2020-12-17] MEDS: chlordiazePOXIDE HCL 10 MG CAPSULE PO SCH ×4 (05:15→22:04)
[2020-12-17 07:19] LABS: BASO % 0.8 % (0-2.0); EOS % 7.4 % (0-4.5); HEMATOCRIT 43.5 % (35.4-49); HEMOGLOBIN 15.1 GM/dL (11.7-16.9); LYMPH % 28.1 % (8-40); MCH 33.7 pg (25.7-33.7); MCHC 34.7 g/dl (32.0-35.9); MEAN CELL VOLUME 97.3 fl (80-96); MEAN PLT VOLUME 8.2 fl (7.5-11.1); MONO % 13.8 % (3.8-10.2); NEUT % 49.9 % (42.8-82.8); PLATELET COUNT 112 K/MM3 (134-434); RBC 4.47 M/mm3 (4.00-5.60); RDW 14.1 % (11.9-15.9); WHITE BLOOD COUNT 5.8 K/mm3 (4.0-10.0)
[2020-12-17] MEDS: NICOTINE 21 MG/24 HOURS TOPICAL PATCH TD SCH (09:04)
[2020-12-17] MEDS: MULTIVITAMINS (DAILY MVI) TABLET (FP) PO SCH (09:04)
[2020-12-17] MEDS: FINASTERIDE 5 MG TABLET (FP) PO SCH (09:05)
[2020-12-17] MEDS: LISINOPRIL 10 MG TABLET PO SCH (09:05)
[2020-12-17] MEDS: FOLIC ACID 1 MG TABLET (FP) PO SCH (09:05)
[2020-12-17] MEDS: TAMSULOSIN HCL 0.4 MG CAP PO SCH (09:06)
[2020-12-17] MEDS: PANTOPRAZOLE 40 MG TABLET PO SCH (09:06)
[2020-12-17] MEDS: ENOXAPARIN NA (PORCINE) 40 MG/0.4 ML DISP.SYRIN SQ SCH (09:07)
[2020-12-17] MEDS: THIAMINE HCL 100 MG TABLET (FP) PO SCH (09:07)
[2020-12-17] MEDS: DULoxetine HCL 30 MG CAPSULE.DR PO SCH (09:07)
[2020-12-17] MEDS: BUDESONIDE/FORMETEROL FUMARATE 160/4.5 mcg INHALER IH SCH ×2 (10:53→22:02)
[2020-12-17] MEDS: ROSUVASTATIN CA 5 MG TABLET (FP) PO SCH (22:03)
[2020-12-18] MEDS ORDERED: chlordiazePOXIDE HCL 10 MG CAPSULE PO SCH ×2 (05:00→17:00)
[2020-12-18] MEDS ORDERED: PT OWN MED DRAWER 7, Y5N ONE (08:15)
[2020-12-18] MEDS: TAMSULOSIN HCL 0.4 MG CAP PO SCH (08:43)
[2020-12-18] MEDS: ENOXAPARIN NA (PORCINE) 40 MG/0.4 ML DISP.SYRIN SQ SCH (09:11)
[2020-12-18] MEDS: FOLIC ACID 1 MG TABLET (FP) PO SCH (09:11)
[2020-12-18] MEDS: NICOTINE 21 MG/24 HOURS TOPICAL PATCH TD SCH (09:11)
[2020-12-18] MEDS: LISINOPRIL 10 MG TABLET PO SCH (09:12)
[2020-12-18] MEDS: PANTOPRAZOLE 40 MG TABLET PO SCH (09:12)
[2020-12-18] MEDS: DULoxetine HCL 30 MG CAPSULE.DR PO SCH (09:12)
[2020-12-18] MEDS: BUDESONIDE/FORMETEROL FUMARATE 160/4.5 mcg INHALER IH SCH ×2 (09:12→21:33)
[2020-12-18] MEDS: FINASTERIDE 5 MG TABLET (FP) PO SCH (09:12)
[2020-12-18] MEDS: THIAMINE HCL 100 MG TABLET (FP) PO SCH (09:12)
[2020-12-18] MEDS: MULTIVITAMINS (DAILY MVI) TABLET (FP) PO SCH (09:12)
[2020-12-18] MEDS ORDERED: SODIUM CHLORIDE 1,000 ML IV SCH (14:15)
[2020-12-18 18:01] LABS: CREATININE 0.9 mg/dL (0.55-1.3)
[2020-12-18] MEDS ORDERED: ROSUVASTATIN CA 5 MG TABLET (FP) PO SCH (22:00)
[2020-12-19] MEDS ORDERED: chlordiazePOXIDE HCL 10 MG CAPSULE PO ONE ×2 (05:00)
[2020-12-19] MEDS ORDERED: TAMSULOSIN HCL 0.4 MG CAP PO SCH (08:30)
[2020-12-19 09:12] LABS: CALCIUM 8.8 mg/dL (8.5-10.1); CREATININE 0.8 mg/dL (0.55-1.3)
[2020-12-19] MEDS ORDERED: LISINOPRIL 10 MG TABLET PO SCH (10:00)
[2020-12-19] MEDS ORDERED: ENOXAPARIN NA (PORCINE) 40 MG/0.4 ML DISP.SYRIN SQ SCH (10:00)
[2020-12-19] MEDS ORDERED: PANTOPRAZOLE 40 MG TABLET PO SCH (10:00)
[2020-12-19] MEDS ORDERED: FINASTERIDE 5 MG TABLET (FP) PO SCH (10:00)
[2020-12-19] MEDS ORDERED: MULTIVITAMINS (DAILY MVI) TABLET (FP) PO SCH (10:00)
[2020-12-19] MEDS ORDERED: FOLIC ACID 1 MG TABLET (FP) PO SCH (10:00)
[2020-12-19] MEDS ORDERED: NICOTINE 21 MG/24 HOURS TOPICAL PATCH TD SCH (10:00)
[2020-12-19] MEDS ORDERED: DULoxetine HCL 30 MG CAPSULE.DR PO SCH (10:00)
[2020-12-19] MEDS ORDERED: THIAMINE HCL 100 MG TABLET (FP) PO SCH (10:00)
[2020-12-19] MEDS ORDERED: PT OWN MED DRAWER 7, Y5N ONE (10:20)
[2020-12-19] MEDS: BUDESONIDE/FORMETEROL FUMARATE 160/4.5 mcg INHALER IH SCH (10:38)
[2020-12-19 10:52] VITALS: BP 161/94; PULSE 84; TEMP 98.1
[2020-12-19] MEDS ORDERED: ACETAMINOPHEN 325 MG TABLET (FP) PO PRN (12:21)
== END 2020-12-19 14:06 | disposition home or self-care (01) | DRG 775 ==
LOC: JER 21:03 → JERBED 12-15 01:09 → J4W 12-15 10:46 → J5S 12-18 11:15
PROVIDERS: ADMIT Hospitalist; ATTEND Internal Medicine
DX: F10.239 Alcohol dependence with withdrawal, unspecified (principal); F17.210 Nicotine dependence, cigarettes, uncomplicated; R74.01 Elevation of levels of liver transaminase levels; E78.5 Hyperlipidemia, unspecified; E87.1 Hypo-osmolality and hyponatremia; J43.8 Other emphysema; I10 Essential (primary) hypertension; N40.0 Benign prostatic hyperplasia without lower urinary tract symptoms; K21.9 Gastro-esophageal reflux disease without esophagitis
CPT/HCPCS: 36415; 71046-TC-FY; 71250-TC; 80048; 80053; 80307; 82533; 82570; 82962; 83735; 83930; 83935; 84300; 84443; 85025; 93005; 93010; 99285-25; C9803; U0003; U0005

== ENCOUNTER 2023-03-03 05:21 | Day surgery (SDC) | payer OTHER ==
[2023-02-27 14:37] VITALS: BMI 24.4
[2023-03-03] MEDS ORDERED: KETAMINE HCL 500 MG/10 ML VIAL ONE (06:58)
[2023-03-03] MEDS ORDERED: MIDAZOLAM HCL 2 MG/2 ML SINGLE DOSE VIAL ONE (06:58)
[2023-03-03] MEDS ORDERED: PROPOFOL 60 ML ONE (06:58)
[2023-03-03] MEDS ORDERED: ACETAMINOPHEN 1000 MG/100 ML BAG IVPB ONE (07:57)
[2023-03-03] MEDS ORDERED: DEXTROSE 5%-0.45% SALINE 1,000 ML IV SCH (08:00)
[2023-03-03] MEDS ORDERED: ACETAMINOPHEN INJECTION 100 ML IVPB ONE (08:28)
[2023-03-03] MEDS ORDERED: ceFAZolin SODIUM 1 GM VIAL IVPB ONE (09:15)
[2023-03-03] MEDS ORDERED: ONDANSETRON 4 MG/2 ML VIAL IVPUSH PRN (09:56)
[2023-03-03] MEDS ORDERED: LACTATED RINGERS SOLUTION 1,000 ML IV SCH (10:00)
[2023-03-03 10:11] VITALS: RESP 18
[2023-03-03 13:27] VITALS: BP 150/84; PULSE 100; TEMP 98.4
== END 2023-03-03 12:40 | disposition home or self-care (01) ==
LOC: JASU-SURG 05:21
PROVIDERS: ATTEND Urology
PROC: 0VT08ZZ Resection of Prostate, Via Natural or Artificial Opening Endoscopic (ICD-10-PCS; principal; 2023-03-03 08:00)
DX: N40.1 Benign prostatic hyperplasia with lower urinary tract symptoms (principal); R39.12 Poor urinary stream; R39.14 Feeling of incomplete bladder emptying
CPT/HCPCS: 82962; 94760

== ENCOUNTER 2023-05-06 11:16 | Inpatient (IN) | payer OTHER ==
[2023-05-06] MEDS ORDERED: ALBUTEROL SO4 2.5/IPRATROPIUM 0.5 INH SOL 3 ML VIAL.NEB. NEB ONE ×2 (12:01→12:17)
[2023-05-06 12:59] LABS: BASO % 0.5 % (0-2.0); EOS % 1.1 % (0-4.5); HEMATOCRIT 41.5 % (35.4-49); HEMOGLOBIN 14.5 GM/dL (11.7-16.9); LYMPH % 18.1 % (8-40); MCH 31.6 pg (25.7-33.7); MEAN CELL VOLUME 90.3 fl (80-96); MEAN PLT VOLUME 7.5 fl (7.5-11.1); MONO % 9.1 % (3.8-10.2); NEUT % 71.2 % (42.8-82.8); PLATELET COUNT 222 10^3/uL (134-434); RBC 4.59 M/mm3 (4.00-5.60); RDW 13.7 % (11.9-15.9); VENOUS BASE EXCESS -0.3 mmol/L (-2-2); VENOUS O2 SATURATION 82.1 % (70-80); VENOUS PCO2 34.1 mmHg (38-52); VENOUS PH 7.448 (7.310-7.410); WHITE BLOOD COUNT 7.8 K/mm3 (4.0-10.0)
[2023-05-06 13:17] LABS: LACTIC ACID 2.2 mmol/L (0.4-2.0)
[2023-05-06 13:26] LABS: CHLORIDE 77 mmol/L (98-107); POTASSIUM 5.6 mmol/L (3.5-5.1)
[2023-05-06 13:28] LABS: CALCIUM 8.9 mg/dL (8.5-10.1)
[2023-05-06 13:29] LABS: ALBUMIN 3.5 g/dl (3.4-5.0); BLOOD UREA NITROGEN 4.9 mg/dL (7-18); CO2 25 mmol/L (21-32); GLUCOSE,RANDOM 172 mg/dL (74-106)
[2023-05-06 13:32] LABS: CREATININE 0.6 mg/dL (0.55-1.3); SGOT/AST 132 U/L (15-37); SGPT/ALT 60 U/L (13-61)
[2023-05-06 13:33] LABS: BILIRUBIN,TOTAL 0.9 mg/dL (0.2-1); TOT PROT 7.7 g/dl (6.4-8.2)
[2023-05-06 13:35] LABS: ALK PHOS 50 U/L (45-117)
[2023-05-06 13:37] LABS: N-TERMINAL BNP 4778.2 pg/ml (5-125)
[2023-05-06 14:03] LABS: ANION GAP 12 MMOL/L (8-16); SODIUM 114 mmol/L (136-145)
[2023-05-06 15:35] LABS: CHLORIDE 76 mmol/L (98-107)
[2023-05-06 15:37] LABS: BLOOD UREA NITROGEN 5.4 mg/dL (7-18); CALCIUM 9.3 mg/dL (8.5-10.1); CO2 27 mmol/L (21-32); GLUCOSE,RANDOM 164 mg/dL (74-106)
[2023-05-06 15:42] LABS: ANION GAP 12 MMOL/L (8-16); CREATININE 0.7 mg/dL (0.55-1.3); SODIUM 116 mmol/L (136-145)
[2023-05-06] MEDS ORDERED: ASPIRIN 325 MG TABLET PO ONE (16:05)
[2023-05-06] MEDS ORDERED: HEPARIN NA (PORCINE) 5,000 UNITS/ML 1ML VIAL IVPUSH PRN ×2 (16:08)
[2023-05-06] MEDS ORDERED: HEPARIN NA (PORCINE) 5,000 UNITS/ML 1ML VIAL IVPUSH ONE ×2 (16:08→16:40)
[2023-05-06] MEDS ORDERED: HEPARIN - 25,000 UNIT in SODIUM CHLORIDE 495 ML IV SCH (16:15)
[2023-05-06] MEDS ORDERED: FUROSEMIDE 40 MG/4 ML INJECTABLE VIAL IVPUSH ONE (17:13)
[2023-05-06] MEDS ORDERED: FUROSEMIDE 40 MG/4 ML INJECTABLE VIAL ONE (17:57)
[2023-05-06 19:26] LABS: URIC ACID 1.9 mg/dL (2.6-7.2)
[2023-05-06] MEDS ORDERED: DOCUSATE SODIUM 100 MG CAPSULE (FP) PO PRN (20:47)
[2023-05-06] MEDS ORDERED: ATORVASTATIN CA 80 MG TABLET (FP) PO ONE (21:13)
[2023-05-06 21:30] LABS: URINE UREA NITROGEN 77 mg/dL (350-1000)
[2023-05-06 23:38] LABS: MAGNESIUM 1.4 mg/dL (1.8-2.4)
[2023-05-06 23:41] LABS: PHOSPHOROUS 3.8 mg/dL (2.5-4.9)
[2023-05-07 00:05] LABS: POTASSIUM 4.1 mmol/L (3.5-5.1)
[2023-05-07 00:06] LABS: CALCIUM 9.1 mg/dL (8.5-10.1)
[2023-05-07 00:07] LABS: BLOOD UREA NITROGEN 8.5 mg/dL (7-18)
[2023-05-07 00:10] LABS: CREATININE 0.7 mg/dL (0.55-1.3)
[2023-05-07] MEDS ORDERED: MAGNESIUM OXIDE 400 MG TABLET (FP) PO ONE (00:10)
[2023-05-07] MEDS ORDERED: ALBUTEROL SO4 2.5/IPRATROPIUM 0.5 INH SOL 3 ML VIAL.NEB. NEB PRN (00:11)
[2023-05-07] MEDS ORDERED: DOXEPIN HCL 50 MG CAPSULE PO SCH (00:16)
[2023-05-07] MEDS: MAGNESIUM SULFATE IN WATER 2 GM/50 ML IVPB IVPB ONE ×2 (00:21→01:38)
[2023-05-07] MEDS ORDERED: traMADol HCL 50 MG TABLET PO PRN (00:24)
[2023-05-07] MEDS: THIAMINE HCL 100 MG TABLET (FP) PO SCH ×2 (01:39→23:14)
[2023-05-07] MEDS: FOLIC ACID 1 MG TABLET (FP) PO SCH ×2 (01:39→23:14)
[2023-05-07] MEDS ORDERED: NICOTINE POLACRILEX 2 MG GUM BUC PRN (06:46)
[2023-05-07 07:34] LABS: BASO % 0.5 % (0-2.0); EOS % 3.4 % (0-4.5); HEMATOCRIT 41.3 % (35.4-49); HEMOGLOBIN 14.1 GM/dL (11.7-16.9); LYMPH % 16.1 % (8-40); MCH 31.8 pg (25.7-33.7); MCHC 34.1 g/dl (32.0-35.9); MEAN PLT VOLUME 7.7 fl (7.5-11.1); MONO % 11.1 % (3.8-10.2); NEUT % 68.9 % (42.8-82.8); PLATELET COUNT 189 10^3/uL (134-434); RBC 4.44 M/mm3 (4.00-5.60); RDW 13.9 % (11.9-15.9); WHITE BLOOD COUNT 6.2 K/mm3 (4.0-10.0)
[2023-05-07 07:51] LABS: CALCIUM 9.3 mg/dL (8.5-10.1)
[2023-05-07 07:52] LABS: MAGNESIUM 1.8 mg/dL (1.8-2.4)
[2023-05-07 07:55] LABS: CREATININE 0.7 mg/dL (0.55-1.3); PHOSPHOROUS 4.6 mg/dL (2.5-4.9)
[2023-05-07 07:56] LABS: BLOOD UREA NITROGEN 7.1 mg/dL (7-18)
[2023-05-07] MEDS ORDERED: DESMOPRESSIN ACETATE 4 MCG/ML AMP IVPB ONE (09:55)
[2023-05-07] MEDS ORDERED: DESMOPRESSIN ACETATE 2 MCG in SODIUM CHLORIDE 50 ML IVPB ONE ×2 (11:00→14:30)
[2023-05-07] MEDS: DEXTROSE 5%-WATER - 1,000 ML IV SCH ×2 (12:00→15:04)
[2023-05-07] MEDS: ASPIRIN COATED 81 MG TABLET.EC PO SCH (12:01)
[2023-05-07] MEDS: PANTOPRAZOLE 40 MG TABLET PO SCH (12:01)
[2023-05-07] MEDS: LORazepam 1 MG TABLET PO PRN ×2 (15:24→23:39)
[2023-05-07] MEDS ORDERED: traMADol HCL 50 MG TABLET ONE (15:31)
[2023-05-07] MEDS ORDERED: LORazepam 1 MG TABLET ONE ×2 (15:32→23:36)
[2023-05-07 18:03] LABS: POTASSIUM 3.9 mmol/L (3.5-5.1)
[2023-05-07 18:05] LABS: CALCIUM 8.6 mg/dL (8.5-10.1)
[2023-05-07 18:06] LABS: BLOOD UREA NITROGEN 8.6 mg/dL (7-18)
[2023-05-07 18:08] LABS: CREATININE 0.6 mg/dL (0.55-1.3)
[2023-05-07] MEDS ORDERED: DOXEPIN HCL 25 MG CAPSULE PO SCH (22:00)
[2023-05-07] MEDS ORDERED: FOLIC ACID 1 MG TABLET (FP) ONE (23:01)
[2023-05-07] MEDS ORDERED: THIAMINE HCL 100 MG TABLET (FP) ONE (23:01)
[2023-05-08 01:49] VITALS: BMI 25.7
[2023-05-08 07:57] LABS: HEMATOCRIT 38.8 % (35.4-49); HEMOGLOBIN 13.1 GM/dL (11.7-16.9); MCH 31.3 pg (25.7-33.7); MCHC 33.7 g/dl (32.0-35.9); MEAN PLT VOLUME 7.9 fl (7.5-11.1); PLATELET COUNT 193 10^3/uL (134-434); RBC 4.17 M/mm3 (4.00-5.60); RDW 13.7 % (11.9-15.9); WHITE BLOOD COUNT 5.3 K/mm3 (4.0-10.0)
[2023-05-08 08:05] LABS: POTASSIUM 3.5 mmol/L (3.5-5.1)
[2023-05-08 08:09] LABS: ALBUMIN 3.2 g/dl (3.4-5.0); BLOOD UREA NITROGEN 6.4 mg/dL (7-18); CALCIUM 8.2 mg/dL (8.5-10.1)
[2023-05-08 08:12] LABS: CREATININE 0.6 mg/dL (0.55-1.3)
[2023-05-08 08:14] LABS: BILIRUBIN,TOTAL 0.9 mg/dL (0.2-1); TOT PROT 6.7 g/dl (6.4-8.2)
[2023-05-08] MEDS ORDERED: HEPARIN NA (PORCINE) 5,000 UNITS/ML 1ML VIAL IVPUSH PRN ×2 (10:48)
[2023-05-08] MEDS: ASPIRIN COATED 81 MG TABLET.EC PO SCH (10:57)
[2023-05-08] MEDS: PANTOPRAZOLE 40 MG TABLET PO SCH (10:57)
[2023-05-08] MEDS: HEPARIN SOD,PORK IN 0.45% NACL 25,000 UNITS/500 ML INFUS.BAG IVPB SCH ×2 (11:05→18:02)
[2023-05-08] MEDS ORDERED: TICAGRELOR 90 MG TABLET PO ONE (11:56)
[2023-05-08] MEDS ORDERED: ATORVASTATIN CA 80 MG TABLET (FP) PO ONE (12:00)
[2023-05-08] MEDS: METOPROLOL TARTRATE 50 MG TABLET (FP) PO SCH ×2 (12:10→21:03)
[2023-05-08] MEDS: LORazepam 1 MG TABLET PO PRN ×2 (15:48→21:03)
[2023-05-08 18:55] VITALS: TEMP 97.9
[2023-05-08] MEDS: THIAMINE HCL 100 MG TABLET (FP) PO SCH (21:03)
[2023-05-08 21:12] VITALS: BP 156/91; PULSE 91; RESP 22
[2023-05-08] MEDS: FOLIC ACID 1 MG TABLET (FP) PO SCH (21:17)
[2023-05-08] MEDS ORDERED: TICAGRELOR 90 MG TABLET PO SCH (22:00)
== END 2023-05-08 21:32 | disposition short-term general hospital (02) | DRG 190 ==
LOC: JER 11:16 → JERBED 20:50 → J4W 05-07 23:58
PROVIDERS: ADMIT Internal Medicine; ATTEND Internal Medicine
DX: I21.4 Non-ST elevation (NSTEMI) myocardial infarction (principal); J44.9 Chronic obstructive pulmonary disease, unspecified; I50.31 Acute diastolic (congestive) heart failure; Z79.84 Long term (current) use of oral hypoglycemic drugs; E78.5 Hyperlipidemia, unspecified; N40.0 Benign prostatic hyperplasia without lower urinary tract symptoms; E87.1 Hypo-osmolality and hyponatremia; J44.1 Chronic obstructive pulmonary disease with (acute) exacerbation; E11.51 Type 2 diabetes mellitus with diabetic peripheral angiopathy without gangrene; F10.10 Alcohol abuse, uncomplicated; F17.210 Nicotine dependence, cigarettes, uncomplicated; I11.0 Hypertensive heart disease with heart failure; J98.11 Atelectasis
CPT/HCPCS: 0241U-QW; 36415; 71046-TC-FY; 71275-TC; 80048; 80053; 82340; 82550; 82553; 82570; 82803; 82962; 83605; 83735; 83880; 83930; 83935; 84100; 84300; 84443; 84484; 84540; 84550; 85025; 85027; 85730; 93005; 93010; 93306-TC; 93970-TC; 94640; 99291; 99292; J1644; J2597

== ENCOUNTER 2023-06-18 13:23 | Inpatient (IN) | payer OTHER ==
[2023-06-18] MEDS ORDERED: TRIMETHOBENZAMIDE HCL 200MG/2ML INJ IM ONE ×2 (14:13→14:28)
[2023-06-18] MEDS ORDERED: SODIUM CHLORIDE 0.9% 500 ML INFUS.BAG IV ONE (14:13)
[2023-06-18] MEDS ORDERED: diazePAM CARPU-JECT 10 MG/2 ML DISP.SYRIN IVPUSH ONE (14:32)
[2023-06-18 14:34] LABS: BASO % 0.4 % (0-2.0); EOS % 2.6 % (0-4.5); HEMATOCRIT 29.4 % (35.4-49); HEMOGLOBIN 10.4 GM/dL (11.7-16.9); LYMPH % 20.7 % (8-40); MCH 28.2 pg (25.7-33.7); MCHC 35.4 g/dl (32.0-35.9); MEAN CELL VOLUME 79.6 fl (80-96); MEAN PLT VOLUME 7.8 fl (7.5-11.1); NEUT % 68.3 % (42.8-82.8); PLATELET COUNT 380 10^3/uL (134-434); RBC 3.69 M/mm3 (4.00-5.60); RDW 17.3 % (11.9-15.9); WHITE BLOOD COUNT 7.9 K/mm3 (4.0-10.0)
[2023-06-18] MEDS ORDERED: diazePAM CARPU-JECT 10 MG/2 ML DISP.SYRIN ONE (14:35)
[2023-06-18 14:43] LABS: INR 1.23 (0.83-1.09); PROTHROMBIN TIME (PATIENT) 14.2 SEC (9.7-13.0)
[2023-06-18 14:56] LABS: CHLORIDE 68 mmol/L (98-107); POTASSIUM 4.2 mmol/L (3.5-5.1)
[2023-06-18 15:00] LABS: CALCIUM 8.6 mg/dL (8.5-10.1)
[2023-06-18 15:01] LABS: ALBUMIN 3.3 g/dl (3.4-5.0); BLOOD UREA NITROGEN 7.4 mg/dL (7-18); CO2 24 mmol/L (21-32); GLUCOSE,RANDOM 93 mg/dL (74-106); MAGNESIUM 1.2 mg/dL (1.8-2.4)
[2023-06-18 15:04] LABS: CREATININE 0.8 mg/dL (0.55-1.3); SGOT/AST 91 U/L (15-37); SGPT/ALT 105 U/L (13-61)
[2023-06-18 15:06] LABS: BILIRUBIN,TOTAL 0.8 mg/dL (0.2-1); TOT PROT 7.6 g/dl (6.4-8.2)
[2023-06-18 15:07] LABS: ALK PHOS 129 U/L (45-117)
[2023-06-18 15:09] LABS: N-TERMINAL BNP 1605.4 pg/ml (5-125)
[2023-06-18 15:11] LABS: ANION GAP 15 mmol/L (4-13); SODIUM 107 mmol/L (136-145)
[2023-06-18] MEDS ORDERED: MAGNESIUM SULFATE IN WATER 2 GM/50 ML IVPB IVPB ONE ×2 (15:13→15:52)
[2023-06-18] MEDS ORDERED: THIAMINE HCL 200 MG/2 ML VIAL IVPB ONE (15:16)
[2023-06-18] MEDS ORDERED: DEXTROSE 5%-NORMAL SALINE 1,000 ML IV SCH (15:30)
[2023-06-18] MEDS ORDERED: DEXTROSE 5%-WATER - 1,000 ML IV SCH (15:30)
[2023-06-18] MEDS ORDERED: THIAMINE HCL 200 MG/2 ML VIAL ONE (15:51)
[2023-06-18 17:01] LABS: VENOUS BASE EXCESS 0.4 mmol/L (-2-2); VENOUS O2 SATURATION 73.4 % (70-80); VENOUS PCO2 35.1 mmHg (38-52); VENOUS PH 7.452 (7.310-7.410)
[2023-06-18 17:05] LABS: CHLORIDE 70 mmol/L (98-107); POTASSIUM 4.6 mmol/L (3.5-5.1)
[2023-06-18 17:07] LABS: BLOOD UREA NITROGEN 7.6 mg/dL (7-18); CALCIUM 8.3 mg/dL (8.5-10.1); CO2 26 mmol/L (21-32); GLUCOSE,RANDOM 100 mg/dL (74-106)
[2023-06-18 17:11] LABS: CREATININE 0.7 mg/dL (0.55-1.3)
[2023-06-18 17:15] LABS: ANION GAP 12 mmol/L (4-13); SODIUM 108 mmol/L (136-145)
[2023-06-18 18:09] LABS: EPI CELLS 17 /uL (0-25.1); HYALINE CASTS 0 /uL (0-3.1); PH,URINE 6.5 (5.0-8.0); URINE APPEARANCE CLEAR; URINE BACTERIA 19 /uL (0-1359); URINE BILIRUBIN NEGATIVE (NEGATIVE); URINE COLOR YELLOW; URINE GLUCOSE (UA) NEGATIVE (NEGATIVE); URINE KETONE TRACE (NEGATIVE); URINE LEUK ESTERASE 2+ (NEGATIVE); URINE NITRITE NEGATIVE (NEGATIVE); URINE PROTEIN NEGATIVE (NEGATIVE); URINE RBC 9 /uL (0-23.9); URINE UROBILINOGEN 0.2 mg/dL (0.2-1.0); URINE WBC 77 /uL (0-25.8)
[2023-06-18] MEDS ORDERED: ALBUTEROL SO4 HFA INHALER IH PRN (18:15)
[2023-06-18] MEDS: oxyCODONE HCL 5 MG TABLET PO PRN (18:47)
[2023-06-18] MEDS: CEFTRIAXONE 1 GM in DEXTROSE 5%-WATER - 50 ML IVPB SCH (18:50)
[2023-06-18 18:56] LABS: CHLORIDE 71 mmol/L (98-107); POTASSIUM 3.9 mmol/L (3.5-5.1)
[2023-06-18 18:58] LABS: CALCIUM 8.2 mg/dL (8.5-10.1)
[2023-06-18 18:59] LABS: BLOOD UREA NITROGEN 7.4 mg/dL (7-18); CO2 24 mmol/L (21-32); GLUCOSE,RANDOM 104 mg/dL (74-106)
[2023-06-18 19:02] LABS: CREATININE 0.6 mg/dL (0.55-1.3)
[2023-06-18 19:06] LABS: ANION GAP 14 mmol/L (4-13); SODIUM 109 mmol/L (136-145)
[2023-06-18] MEDS: MUPIROCIN 2% TOPICAL OINTMENT FOR DECOLONIZATION NS SCH (21:08)
[2023-06-18] MEDS: MELATONIN 5 MG TABLETS PO SCH (21:09)
[2023-06-18] MEDS: CHLORHEXIDINE GLUCONATE 4% CLEANSER FOR DECOLONIZATION TP SCH (21:09)
[2023-06-18] MEDS: APIXABAN 2.5 MG TABLET PO SCH (21:09)
[2023-06-18] MEDS: amLODIPine BESYLATE 2.5 MG TABLET (FP) PO SCH (21:09)
[2023-06-18] MEDS: TAMSULOSIN HCL 0.4 MG CAP PO SCH (21:09)
[2023-06-18] MEDS: FOLIC ACID 1 MG TABLET (FP) PO SCH (21:09)
[2023-06-18] MEDS: GABAPENTIN 100 MG CAPSULE PO SCH (21:09)
[2023-06-18] MEDS: MAGNESIUM OXIDE 400 MG TABLET (FP) PO SCH (21:09)
[2023-06-18] MEDS: ATORVASTATIN CA 80 MG TABLET (FP) PO SCH (21:09)
[2023-06-18] MEDS: INSULIN SLIDING SCALE (NOVOLOG) 1 VIAL SQ SCH (21:10)
[2023-06-18 21:18] LABS: CHLORIDE 74 mmol/L (98-107); POTASSIUM 3.8 mmol/L (3.5-5.1)
[2023-06-18 21:19] LABS: CALCIUM 8.1 mg/dL (8.5-10.1)
[2023-06-18 21:20] LABS: BLOOD UREA NITROGEN 7.6 mg/dL (7-18); CO2 26 mmol/L (21-32); GLUCOSE,RANDOM 105 mg/dL (74-106)
[2023-06-18 21:23] LABS: CREATININE 0.7 mg/dL (0.55-1.3)
[2023-06-18 21:32] LABS: ANION GAP 12 mmol/L (4-13); SODIUM 112 mmol/L (136-145)
[2023-06-18 22:40] LABS: CHLORIDE 75 mmol/L (98-107); POTASSIUM 3.7 mmol/L (3.5-5.1)
[2023-06-18 22:42] LABS: BLOOD UREA NITROGEN 6.1 mg/dL (7-18); CALCIUM 8.1 mg/dL (8.5-10.1); CO2 25 mmol/L (21-32); GLUCOSE,RANDOM 105 mg/dL (74-106)
[2023-06-18 22:46] LABS: CREATININE 0.6 mg/dL (0.55-1.3)
[2023-06-18 22:47] LABS: ANION GAP 11 mmol/L (4-13); SODIUM 111 mmol/L (136-145)
[2023-06-19 00:44] LABS: CHLORIDE 78 mmol/L (98-107); POTASSIUM 3.6 mmol/L (3.5-5.1)
[2023-06-19 00:46] LABS: BLOOD UREA NITROGEN 6.5 mg/dL (7-18); CALCIUM 8.3 mg/dL (8.5-10.1); CO2 27 mmol/L (21-32); GLUCOSE,RANDOM 102 mg/dL (74-106)
[2023-06-19 00:50] LABS: CREATININE 0.6 mg/dL (0.55-1.3)
[2023-06-19 01:05] LABS: ANION GAP 9 mmol/L (4-13); SODIUM 115 mmol/L (136-145)
[2023-06-19] MEDS ORDERED: DEXTROSE 5%-NORMAL SALINE 1,000 ML IV SCH (01:57)
[2023-06-19] MEDS: oxyCODONE HCL 5 MG TABLET PO PRN ×3 (02:27→21:20)
[2023-06-19 02:57] LABS: CHLORIDE 80 mmol/L (98-107); POTASSIUM 3.6 mmol/L (3.5-5.1)
[2023-06-19 02:58] LABS: CALCIUM 8.4 mg/dL (8.5-10.1)
[2023-06-19 02:59] LABS: BLOOD UREA NITROGEN 6.5 mg/dL (7-18); CO2 28 mmol/L (21-32); GLUCOSE,RANDOM 90 mg/dL (74-106)
[2023-06-19 03:02] LABS: CREATININE 0.7 mg/dL (0.55-1.3)
[2023-06-19 03:05] LABS: ANION GAP 9 mmol/L (4-13); SODIUM 117 mmol/L (136-145)
[2023-06-19 05:15] LABS: CHLORIDE 81 mmol/L (98-107); POTASSIUM 3.6 mmol/L (3.5-5.1)
[2023-06-19 05:16] LABS: CALCIUM 8.2 mg/dL (8.5-10.1); CO2 28 mmol/L (21-32)
[2023-06-19 05:17] LABS: GLUCOSE,RANDOM 90 mg/dL (74-106)
[2023-06-19 05:20] LABS: CREATININE 0.6 mg/dL (0.55-1.3)
[2023-06-19 05:26] LABS: ANION GAP 10 mmol/L (4-13); SODIUM 119 mmol/L (136-145)
[2023-06-19] MEDS: MAGNESIUM OXIDE 400 MG TABLET (FP) PO SCH ×3 (06:00→21:22)
[2023-06-19] MEDS: DEXTROSE 5%-WATER - 1,000 ML IV SCH (06:01)
[2023-06-19] MEDS: INSULIN SLIDING SCALE (NOVOLOG) 1 VIAL SQ SCH ×4 (06:18→21:22)
[2023-06-19 07:29] LABS: BASO % 0.6 % (0-2.0); EOS % 2.6 % (0-4.5); HEMATOCRIT 30.5 % (35.4-49); HEMOGLOBIN 10.4 GM/dL (11.7-16.9); LYMPH % 22.2 % (8-40); MCH 27.7 pg (25.7-33.7); MCHC 34.2 g/dl (32.0-35.9); MEAN CELL VOLUME 80.9 fl (80-96); MEAN PLT VOLUME 7.6 fl (7.5-11.1); MONO % 10.2 % (3.8-10.2); NEUT % 64.4 % (42.8-82.8); PLATELET COUNT 335 10^3/uL (134-434); RBC 3.76 M/mm3 (4.00-5.60); RDW 17.8 % (11.9-15.9); WHITE BLOOD COUNT 4.9 K/mm3 (4.0-10.0)
[2023-06-19 07:50] LABS: POTASSIUM 3.5 mmol/L (3.5-5.1)
[2023-06-19] MEDS ORDERED: DESMOPRESSIN ACETATE 0.2 MG TABLET PO ONE (08:13)
[2023-06-19 08:22] LABS: BLOOD UREA NITROGEN 4.5 mg/dL (7-18); CALCIUM 8.5 mg/dL (8.5-10.1); CREATININE 0.6 mg/dL (0.55-1.3); MAGNESIUM 1.7 mg/dL (1.8-2.4); PHOSPHOROUS 3.8 mg/dL (2.5-4.9)
[2023-06-19] MEDS ORDERED: MAGNESIUM SULF 50% (8.12 MEQ/2 ML-1 GM VIAL) IVPB ONE (08:47)
[2023-06-19] MEDS ORDERED: DESMOPRESSIN ACETATE 4 MCG/ML AMP IVPB ONE (09:00)
[2023-06-19] MEDS: LISINOPRIL 5 MG TABLET PO SCH (09:55)
[2023-06-19] MEDS: GABAPENTIN 100 MG CAPSULE PO SCH ×2 (09:55→21:22)
[2023-06-19] MEDS: PANTOPRAZOLE 40 MG TABLET PO SCH (09:55)
[2023-06-19] MEDS: AMIODARONE HCL 200 MG TABLET PO SCH (09:55)
[2023-06-19] MEDS: THIAMINE HCL 100 MG TABLET (FP) PO SCH (09:55)
[2023-06-19] MEDS: APIXABAN 2.5 MG TABLET PO SCH ×2 (09:55→21:21)
[2023-06-19] MEDS: CEFTRIAXONE 1 GM in DEXTROSE 5%-WATER - 50 ML IVPB SCH (09:55)
[2023-06-19] MEDS: ASPIRIN 81 MG CHEWABLE TABLETS PO SCH (09:55)
[2023-06-19] MEDS: MUPIROCIN 2% TOPICAL OINTMENT FOR DECOLONIZATION NS SCH ×2 (09:56→21:22)
[2023-06-19] MEDS: metoPROLOL SUCCINATE 25 MG TAB.SR.24H (FP) PO SCH (09:57)
[2023-06-19] MEDS ORDERED: sitaGLIPtin PHOSPHATE 50 MG TABLET PO SCH (10:00)
[2023-06-19] MEDS: FLUTICASONE/UMECLIDIN/VILANTER(100-62.5-25 TRELEGY ELLIPTA) INAHLER IH SCH (10:00)
[2023-06-19] MEDS ORDERED: ENOXAPARIN NA (PORCINE) 40 MG/0.4 ML DISP.SYRIN SQ SCH (10:00)
[2023-06-19] MEDS ORDERED: MAGNESIUM SULFATE IN WATER 2 GM/50 ML IVPB IVPB ONE (10:30)
[2023-06-19 14:00] LABS: CHLORIDE 82 mmol/L (98-107); POTASSIUM 3.6 mmol/L (3.5-5.1)
[2023-06-19 14:02] LABS: CALCIUM 8.4 mg/dL (8.5-10.1)
[2023-06-19 14:03] LABS: BLOOD UREA NITROGEN 5.2 mg/dL (7-18); CO2 27 mmol/L (21-32); GLUCOSE,RANDOM 148 mg/dL (74-106)
[2023-06-19 14:17] LABS: ANION GAP 10 mmol/L (4-13); CREATININE 0.6 mg/dL (0.55-1.3); SODIUM 119 mmol/L (136-145)
[2023-06-19] MEDS ORDERED: SODIUM CHLORIDE 0.45% 500 ML IV SCH (18:30)
[2023-06-19 18:52] LABS: CHLORIDE 82 mmol/L (98-107); POTASSIUM 3.5 mmol/L (3.5-5.1)
[2023-06-19 18:53] LABS: CALCIUM 8.5 mg/dL (8.5-10.1)
[2023-06-19 18:54] LABS: BLOOD UREA NITROGEN 5.7 mg/dL (7-18); CO2 25 mmol/L (21-32); GLUCOSE,RANDOM 134 mg/dL (74-106)
[2023-06-19 18:57] LABS: ANION GAP 12 mmol/L (4-13); SODIUM 119 mmol/L (136-145)
[2023-06-19] MEDS: TAMSULOSIN HCL 0.4 MG CAP PO SCH (21:20)
[2023-06-19] MEDS: MELATONIN 5 MG TABLETS PO SCH (21:21)
[2023-06-19] MEDS: amLODIPine BESYLATE 2.5 MG TABLET (FP) PO SCH (21:21)
[2023-06-19] MEDS: FOLIC ACID 1 MG TABLET (FP) PO SCH (21:21)
[2023-06-19] MEDS: ATORVASTATIN CA 80 MG TABLET (FP) PO SCH (21:21)
[2023-06-19] MEDS: CHLORHEXIDINE GLUCONATE 4% CLEANSER FOR DECOLONIZATION TP SCH (21:22)
[2023-06-19 23:57] LABS: CHLORIDE 80 mmol/L (98-107); POTASSIUM 3.7 mmol/L (3.5-5.1)
[2023-06-19 23:58] LABS: CALCIUM 8.4 mg/dL (8.5-10.1)
[2023-06-19 23:59] LABS: BLOOD UREA NITROGEN 7.4 mg/dL (7-18); CO2 29 mmol/L (21-32); GLUCOSE,RANDOM 120 mg/dL (74-106)
[2023-06-20 00:02] LABS: CREATININE 0.9 mg/dL (0.55-1.3)
[2023-06-20 00:32] LABS: ANION GAP 9 mmol/L (4-13); SODIUM 118 mmol/L (136-145)
[2023-06-20] MEDS: LEVOTHYROXINE NA 50 MCG TABLET (FP) PO SCH (06:16)
[2023-06-20] MEDS: DEXTROSE 5%-WATER - 1,000 ML IV SCH ×2 (06:16→08:38)
[2023-06-20] MEDS: MAGNESIUM OXIDE 400 MG TABLET (FP) PO SCH ×3 (06:16→21:00)
[2023-06-20] MEDS: INSULIN SLIDING SCALE (NOVOLOG) 1 VIAL SQ SCH ×4 (06:17→21:02)
[2023-06-20] MEDS: sitaGLIPtin PHOSPHATE 50 MG TABLET PO SCH (06:51)
[2023-06-20 08:07] LABS: CHLORIDE 79 mmol/L (98-107); POTASSIUM 3.5 mmol/L (3.5-5.1)
[2023-06-20 08:09] LABS: BLOOD UREA NITROGEN 6.3 mg/dL (7-18); CALCIUM 8.3 mg/dL (8.5-10.1); CO2 26 mmol/L (21-32)
[2023-06-20 08:10] LABS: GLUCOSE,RANDOM 109 mg/dL (74-106)
[2023-06-20 08:13] LABS: CREATININE 0.7 mg/dL (0.55-1.3)
[2023-06-20 08:18] LABS: ANION GAP 11 mmol/L (4-13); SODIUM 116 mmol/L (136-145)
[2023-06-20] MEDS: THIAMINE HCL 100 MG TABLET (FP) PO SCH (09:43)
[2023-06-20] MEDS: metoPROLOL SUCCINATE 25 MG TAB.SR.24H (FP) PO SCH (09:43)
[2023-06-20] MEDS: APIXABAN 2.5 MG TABLET PO SCH ×2 (09:43→20:59)
[2023-06-20] MEDS: GABAPENTIN 100 MG CAPSULE PO SCH ×2 (09:43→20:59)
[2023-06-20] MEDS: MUPIROCIN 2% TOPICAL OINTMENT FOR DECOLONIZATION NS SCH ×2 (09:44→21:00)
[2023-06-20] MEDS: AMIODARONE HCL 200 MG TABLET PO SCH (09:44)
[2023-06-20] MEDS: PANTOPRAZOLE 40 MG TABLET PO SCH (09:44)
[2023-06-20] MEDS: LISINOPRIL 5 MG TABLET PO SCH (09:44)
[2023-06-20] MEDS: ASPIRIN 81 MG CHEWABLE TABLETS PO SCH (09:44)
[2023-06-20] MEDS: FLUTICASONE/UMECLIDIN/VILANTER(100-62.5-25 TRELEGY ELLIPTA) INAHLER IH SCH (11:26)
[2023-06-20 12:50] LABS: CHLORIDE 79 mmol/L (98-107); POTASSIUM 3.7 mmol/L (3.5-5.1)
[2023-06-20 12:53] LABS: BLOOD UREA NITROGEN 5.2 mg/dL (7-18); CO2 28 mmol/L (21-32); GLUCOSE,RANDOM 130 mg/dL (74-106)
[2023-06-20 12:54] VITALS: BMI 23.7
[2023-06-20 12:55] LABS: CALCIUM 8.2 mg/dL (8.5-10.1)
[2023-06-20 12:56] LABS: ANION GAP 9 mmol/L (4-13); CREATININE 0.7 mg/dL (0.55-1.3); SODIUM 116 mmol/L (136-145)
[2023-06-20] MEDS ORDERED: SODIUM CHLORIDE 1,000 ML IV SCH (13:30)
[2023-06-20] MEDS: oxyCODONE HCL 5 MG TABLET PO PRN ×2 (15:04→23:47)
[2023-06-20 19:01] LABS: CHLORIDE 81 mmol/L (98-107); POTASSIUM 4.1 mmol/L (3.5-5.1)
[2023-06-20 19:02] LABS: CALCIUM 8.2 mg/dL (8.5-10.1)
[2023-06-20 19:03] LABS: BLOOD UREA NITROGEN 5.9 mg/dL (7-18); CO2 26 mmol/L (21-32); GLUCOSE,RANDOM 134 mg/dL (74-106)
[2023-06-20 19:06] LABS: CREATININE 0.7 mg/dL (0.55-1.3)
[2023-06-20 19:12] LABS: ANION GAP 10 mmol/L (4-13); SODIUM 117 mmol/L (136-145)
[2023-06-20] MEDS: FOLIC ACID 1 MG TABLET (FP) PO SCH (20:59)
[2023-06-20] MEDS: amLODIPine BESYLATE 2.5 MG TABLET (FP) PO SCH (20:59)
[2023-06-20] MEDS: ATORVASTATIN CA 80 MG TABLET (FP) PO SCH (20:59)
[2023-06-20] MEDS: MELATONIN 5 MG TABLETS PO SCH (20:59)
[2023-06-20] MEDS: TAMSULOSIN HCL 0.4 MG CAP PO SCH (20:59)
[2023-06-20] MEDS: CHLORHEXIDINE GLUCONATE 4% CLEANSER FOR DECOLONIZATION TP SCH (21:00)
[2023-06-21] MEDS: LEVOTHYROXINE NA 50 MCG TABLET (FP) PO SCH (06:00)
[2023-06-21] MEDS: MAGNESIUM OXIDE 400 MG TABLET (FP) PO SCH ×3 (06:00→22:37)
[2023-06-21] MEDS: INSULIN SLIDING SCALE (NOVOLOG) 1 VIAL SQ SCH ×4 (06:02→22:41)
[2023-06-21] MEDS: sitaGLIPtin PHOSPHATE 50 MG TABLET PO SCH (06:03)
[2023-06-21 07:53] LABS: POTASSIUM 4.2 mmol/L (3.5-5.1)
[2023-06-21 07:54] LABS: CALCIUM 8.3 mg/dL (8.5-10.1)
[2023-06-21 07:55] LABS: BLOOD UREA NITROGEN 4.7 mg/dL (7-18)
[2023-06-21 07:58] LABS: CREATININE 0.7 mg/dL (0.55-1.3)
[2023-06-21] MEDS: THIAMINE HCL 100 MG TABLET (FP) PO SCH (10:37)
[2023-06-21] MEDS: PANTOPRAZOLE 40 MG TABLET PO SCH (10:37)
[2023-06-21] MEDS: APIXABAN 2.5 MG TABLET PO SCH ×2 (10:37→22:37)
[2023-06-21] MEDS: ASPIRIN 81 MG CHEWABLE TABLETS PO SCH (10:37)
[2023-06-21] MEDS: GABAPENTIN 100 MG CAPSULE PO SCH ×2 (10:37→22:37)
[2023-06-21] MEDS: MUPIROCIN 2% TOPICAL OINTMENT FOR DECOLONIZATION NS SCH (10:38)
[2023-06-21] MEDS: AMIODARONE HCL 200 MG TABLET PO SCH (10:38)
[2023-06-21] MEDS: FLUTICASONE/UMECLIDIN/VILANTER(100-62.5-25 TRELEGY ELLIPTA) INAHLER IH SCH (10:39)
[2023-06-21] MEDS: metoPROLOL SUCCINATE 25 MG TAB.SR.24H (FP) PO SCH (12:25)
[2023-06-21] MEDS: LISINOPRIL 5 MG TABLET PO SCH (12:25)
[2023-06-21] MEDS: ALPRAZolam 0.25 MG TABLET PO PRN ×2 (12:25→22:40)
[2023-06-21] MEDS ORDERED: LORazepam 2 MG/ML SDV VIAL IVPUSH PRN (17:12)
[2023-06-21] MEDS ORDERED: ALBUTEROL SO4 HFA INHALER IH PRN (17:12)
[2023-06-21] MEDS ORDERED: DOCUSATE SODIUM 100 MG CAPSULE (FP) PO PRN (21:42)
[2023-06-21] MEDS ORDERED: MAGNESIUM HYDROX 2400MG/30ML ORAL SUSPENSION 30 ML CUP PO PRN (21:43)
[2023-06-21] MEDS ORDERED: MUPIROCIN 2% TOPICAL OINTMENT FOR DECOLONIZATION NS SCH (22:00)
[2023-06-21] MEDS ORDERED: CHLORHEXIDINE GLUCONATE 4% CLEANSER FOR DECOLONIZATION TP SCH (22:00)
[2023-06-21] MEDS: FOLIC ACID 1 MG TABLET (FP) PO SCH (22:36)
[2023-06-21] MEDS: TAMSULOSIN HCL 0.4 MG CAP PO SCH (22:36)
[2023-06-21] MEDS: amLODIPine BESYLATE 2.5 MG TABLET (FP) PO SCH (22:37)
[2023-06-21] MEDS: oxyCODONE HCL 5 MG TABLET PO PRN (22:37)
[2023-06-21] MEDS: MELATONIN 5 MG TABLETS PO SCH (22:37)
[2023-06-21] MEDS: ATORVASTATIN CA 80 MG TABLET (FP) PO SCH (22:37)
[2023-06-21] MEDS: SENNOSIDES/DOCUSATE COMBO (SENNA PLUS) TABLET (UD) PO PRN (22:40)
[2023-06-22] MEDS: INSULIN SLIDING SCALE (NOVOLOG) 1 VIAL SQ SCH ×4 (06:32→22:16)
[2023-06-22] MEDS: MAGNESIUM OXIDE 400 MG TABLET (FP) PO SCH ×3 (06:32→22:16)
[2023-06-22] MEDS: LEVOTHYROXINE NA 50 MCG TABLET (FP) PO SCH (06:38)
[2023-06-22] MEDS: sitaGLIPtin PHOSPHATE 50 MG TABLET PO SCH (06:38)
[2023-06-22] MEDS ORDERED: INSULIN (NOVOLOG) ASPART 100 UNITS/ML 10ML VIAL ONE ×2 (07:07→21:28)
[2023-06-22 08:57] LABS: BASO % 0.5 % (0-2.0); HEMATOCRIT 25.1 % (35.4-49); LYMPH % 24.7 % (8-40); MCH 29.1 pg (25.7-33.7); MCHC 35.8 g/dl (32.0-35.9); MEAN CELL VOLUME 81.5 fl (80-96); MEAN PLT VOLUME 7.9 fl (7.5-11.1); MONO % 7.4 % (3.8-10.2); NEUT % 62.4 % (42.8-82.8); PLATELET COUNT 260 10^3/uL (134-434); RBC 3.08 M/mm3 (4.00-5.60); RDW 17.9 % (11.9-15.9); WHITE BLOOD COUNT 7.1 K/mm3 (4.0-10.0)
[2023-06-22 09:01] LABS: POTASSIUM 4.3 mmol/L (3.5-5.1)
[2023-06-22 09:03] LABS: CALCIUM 8.2 mg/dL (8.5-10.1)
[2023-06-22 09:04] LABS: ALBUMIN 2.7 g/dl (3.4-5.0)
[2023-06-22 09:07] LABS: CREATININE 0.6 mg/dL (0.55-1.3)
[2023-06-22 09:08] LABS: BILIRUBIN,TOTAL 0.6 mg/dL (0.2-1); TOT PROT 6.4 g/dl (6.4-8.2)
[2023-06-22] MEDS ORDERED: LACTULOSE 20 GM/30 ML UDC (FOR ORAL USE ONLY) PO ONE (09:46)
[2023-06-22] MEDS: THIAMINE HCL 100 MG TABLET (FP) PO SCH (11:09)
[2023-06-22] MEDS: GABAPENTIN 100 MG CAPSULE PO SCH ×2 (11:09→22:16)
[2023-06-22] MEDS: LISINOPRIL 5 MG TABLET PO SCH ×2 (11:09→11:35)
[2023-06-22] MEDS: PANTOPRAZOLE 40 MG TABLET PO SCH (11:09)
[2023-06-22] MEDS: ASPIRIN 81 MG CHEWABLE TABLETS PO SCH (11:09)
[2023-06-22] MEDS: APIXABAN 2.5 MG TABLET PO SCH ×2 (11:10→22:16)
[2023-06-22] MEDS: AMIODARONE HCL 200 MG TABLET PO SCH (11:10)
[2023-06-22] MEDS: metoPROLOL SUCCINATE 25 MG TAB.SR.24H (FP) PO SCH ×2 (11:10→11:36)
[2023-06-22] MEDS: FLUTICASONE/UMECLIDIN/VILANTER(100-62.5-25 TRELEGY ELLIPTA) INAHLER IH SCH (13:57)
[2023-06-22] MEDS: ALPRAZolam 0.25 MG TABLET PO PRN (22:14)
[2023-06-22] MEDS: amLODIPine BESYLATE 2.5 MG TABLET (FP) PO SCH (22:15)
[2023-06-22] MEDS: ATORVASTATIN CA 80 MG TABLET (FP) PO SCH (22:15)
[2023-06-22] MEDS: MELATONIN 5 MG TABLETS PO SCH (22:15)
[2023-06-22] MEDS: TAMSULOSIN HCL 0.4 MG CAP PO SCH (22:16)
[2023-06-22] MEDS: FOLIC ACID 1 MG TABLET (FP) PO SCH (22:16)
[2023-06-22] MEDS: SENNOSIDES/DOCUSATE COMBO (SENNA PLUS) TABLET (UD) PO PRN (22:20)
[2023-06-22] MEDS: oxyCODONE HCL 5 MG TABLET PO PRN (22:21)
[2023-06-23] MEDS: sitaGLIPtin PHOSPHATE 50 MG TABLET PO SCH (06:10)
[2023-06-23] MEDS: MAGNESIUM OXIDE 400 MG TABLET (FP) PO SCH ×3 (06:10→21:13)
[2023-06-23] MEDS: LEVOTHYROXINE NA 50 MCG TABLET (FP) PO SCH (06:11)
[2023-06-23] MEDS: INSULIN SLIDING SCALE (NOVOLOG) 1 VIAL SQ SCH ×4 (06:11→21:24)
[2023-06-23 10:12] LABS: POTASSIUM 4.3 mmol/L (3.5-5.1)
[2023-06-23 10:16] LABS: CALCIUM 8.4 mg/dL (8.5-10.1)
[2023-06-23 10:17] LABS: BLOOD UREA NITROGEN 6.1 mg/dL (7-18)
[2023-06-23 10:19] LABS: CREATININE 0.6 mg/dL (0.55-1.3)
[2023-06-23] MEDS: ASPIRIN 81 MG CHEWABLE TABLETS PO SCH (10:28)
[2023-06-23] MEDS: FLUTICASONE/UMECLIDIN/VILANTER(100-62.5-25 TRELEGY ELLIPTA) INAHLER IH SCH (10:28)
[2023-06-23] MEDS: GABAPENTIN 100 MG CAPSULE PO SCH ×2 (10:28→21:13)
[2023-06-23] MEDS: APIXABAN 2.5 MG TABLET PO SCH ×2 (10:28→21:13)
[2023-06-23] MEDS: THIAMINE HCL 100 MG TABLET (FP) PO SCH (10:29)
[2023-06-23] MEDS: PANTOPRAZOLE 40 MG TABLET PO SCH (10:29)
[2023-06-23] MEDS: metoPROLOL SUCCINATE 25 MG TAB.SR.24H (FP) PO SCH (10:30)
[2023-06-23] MEDS: LISINOPRIL 5 MG TABLET PO SCH (10:30)
[2023-06-23] MEDS: AMIODARONE HCL 200 MG TABLET PO SCH (10:32)
[2023-06-23] MEDS: oxyCODONE HCL 5 MG TABLET PO PRN ×2 (14:55→21:14)
[2023-06-23] MEDS: MELATONIN 5 MG TABLETS PO SCH (21:13)
[2023-06-23] MEDS: ALPRAZolam 0.25 MG TABLET PO PRN (21:13)
[2023-06-23] MEDS: amLODIPine BESYLATE 2.5 MG TABLET (FP) PO SCH (21:13)
[2023-06-23] MEDS: ATORVASTATIN CA 80 MG TABLET (FP) PO SCH (21:13)
[2023-06-23] MEDS: TAMSULOSIN HCL 0.4 MG CAP PO SCH (21:13)
[2023-06-23] MEDS: FOLIC ACID 1 MG TABLET (FP) PO SCH (21:13)
[2023-06-23] MEDS: SENNOSIDES/DOCUSATE COMBO (SENNA PLUS) TABLET (UD) PO PRN (21:14)
[2023-06-23] MEDS ORDERED: INSULIN (NOVOLOG) ASPART 100 UNITS/ML 10ML VIAL ONE (21:20)
[2023-06-23 22:28] VITALS: RESP 20
[2023-06-24] MEDS: LEVOTHYROXINE NA 50 MCG TABLET (FP) PO SCH (06:08)
[2023-06-24] MEDS: sitaGLIPtin PHOSPHATE 50 MG TABLET PO SCH (06:08)
[2023-06-24] MEDS: MAGNESIUM OXIDE 400 MG TABLET (FP) PO SCH ×3 (06:08→21:51)
[2023-06-24] MEDS: INSULIN SLIDING SCALE (NOVOLOG) 1 VIAL SQ SCH ×4 (06:12→21:57)
[2023-06-24 07:41] LABS: BASO % 0.7 % (0-2.0); EOS % 8.9 % (0-4.5); HEMATOCRIT 26.8 % (35.4-49); MCH 28.1 pg (25.7-33.7); MCHC 33.7 g/dl (32.0-35.9); MEAN CELL VOLUME 83.3 fl (80-96); MEAN PLT VOLUME 7.5 fl (7.5-11.1); MONO % 8.3 % (3.8-10.2); NEUT % 63.1 % (42.8-82.8); PLATELET COUNT 275 10^3/uL (134-434); RBC 3.22 M/mm3 (4.00-5.60); RDW 17.9 % (11.9-15.9); WHITE BLOOD COUNT 8.1 K/mm3 (4.0-10.0)
[2023-06-24 08:12] LABS: POTASSIUM 4.2 mmol/L (3.5-5.1)
[2023-06-24 08:17] LABS: ALBUMIN 2.8 g/dl (3.4-5.0)
[2023-06-24 08:18] LABS: BLOOD UREA NITROGEN 8.5 mg/dL (7-18); CALCIUM 8.6 mg/dL (8.5-10.1)
[2023-06-24 08:20] LABS: CREATININE 0.5 mg/dL (0.55-1.3)
[2023-06-24 08:22] LABS: BILIRUBIN,TOTAL 0.8 mg/dL (0.2-1); TOT PROT 6.6 g/dl (6.4-8.2)
[2023-06-24] MEDS: ASPIRIN 81 MG CHEWABLE TABLETS PO SCH (09:43)
[2023-06-24] MEDS: metoPROLOL SUCCINATE 25 MG TAB.SR.24H (FP) PO SCH (09:44)
[2023-06-24] MEDS: PANTOPRAZOLE 40 MG TABLET PO SCH (09:44)
[2023-06-24] MEDS: GABAPENTIN 100 MG CAPSULE PO SCH ×2 (09:44→21:51)
[2023-06-24] MEDS: APIXABAN 2.5 MG TABLET PO SCH ×2 (09:44→21:51)
[2023-06-24] MEDS: THIAMINE HCL 100 MG TABLET (FP) PO SCH (09:44)
[2023-06-24] MEDS: AMIODARONE HCL 200 MG TABLET PO SCH (09:44)
[2023-06-24] MEDS: LISINOPRIL 5 MG TABLET PO SCH (09:44)
[2023-06-24] MEDS: FLUTICASONE/UMECLIDIN/VILANTER(100-62.5-25 TRELEGY ELLIPTA) INAHLER IH SCH (09:45)
[2023-06-24] MEDS ORDERED: MAGNESIUM CITRATE 300 ML BOTTLE PO ONE (10:30)
[2023-06-24] MEDS: SODIUM CHLORIDE 1 GM TABLET PO SCH ×2 (14:33→21:51)
[2023-06-24] MEDS ORDERED: INSULIN (NOVOLOG) ASPART 100 UNITS/ML 10ML VIAL ONE (21:39)
[2023-06-24] MEDS: amLODIPine BESYLATE 2.5 MG TABLET (FP) PO SCH (21:50)
[2023-06-24] MEDS: FOLIC ACID 1 MG TABLET (FP) PO SCH (21:51)
[2023-06-24] MEDS: MELATONIN 5 MG TABLETS PO SCH (21:51)
[2023-06-24] MEDS: TAMSULOSIN HCL 0.4 MG CAP PO SCH (21:51)
[2023-06-24] MEDS: ATORVASTATIN CA 80 MG TABLET (FP) PO SCH (21:51)
[2023-06-25] MEDS ORDERED: oxyCODONE HCL 5 MG TABLET PO ONE (01:54)
[2023-06-25] MEDS ORDERED: INSULIN (NOVOLOG) ASPART 100 UNITS/ML 10ML VIAL ONE (05:35)
[2023-06-25] MEDS: sitaGLIPtin PHOSPHATE 50 MG TABLET PO SCH (06:36)
[2023-06-25] MEDS: MAGNESIUM OXIDE 400 MG TABLET (FP) PO SCH (06:36)
[2023-06-25] MEDS: INSULIN SLIDING SCALE (NOVOLOG) 1 VIAL SQ SCH (06:39)
[2023-06-25 06:53] VITALS: BP 122/69; PULSE 71; TEMP 97.5
[2023-06-25] MEDS ORDERED: LEVOTHYROXINE NA 75 MCG TABLET (FP) PO SCH (07:00)
[2023-06-25 10:04] LABS: POTASSIUM 4.5 mmol/L (3.5-5.1)
[2023-06-25 10:11] LABS: CALCIUM 8.8 mg/dL (8.5-10.1)
[2023-06-25 10:12] LABS: BLOOD UREA NITROGEN 8.7 mg/dL (7-18)
[2023-06-25] MEDS: metoPROLOL SUCCINATE 25 MG TAB.SR.24H (FP) PO SCH (10:12)
[2023-06-25] MEDS: LISINOPRIL 5 MG TABLET PO SCH (10:12)
[2023-06-25] MEDS: ASPIRIN 81 MG CHEWABLE TABLETS PO SCH (10:12)
[2023-06-25] MEDS: THIAMINE HCL 100 MG TABLET (FP) PO SCH (10:12)
[2023-06-25] MEDS: PANTOPRAZOLE 40 MG TABLET PO SCH (10:13)
[2023-06-25] MEDS: APIXABAN 2.5 MG TABLET PO SCH (10:13)
[2023-06-25] MEDS: GABAPENTIN 100 MG CAPSULE PO SCH (10:13)
[2023-06-25] MEDS: AMIODARONE HCL 200 MG TABLET PO SCH (10:13)
[2023-06-25] MEDS: FLUTICASONE/UMECLIDIN/VILANTER(100-62.5-25 TRELEGY ELLIPTA) INAHLER IH SCH (10:13)
[2023-06-25 10:15] LABS: CREATININE 0.6 mg/dL (0.55-1.3)
== END 2023-06-25 12:07 | disposition home or self-care (01) | DRG 425 ==
LOC: JER 13:23 → JERBED 16:23 → JICU 17:24 → J8W 06-21 16:57
PROVIDERS: ADMIT Internal Medicine Pulmonary Disease; ATTEND Internal Medicine
DX: E87.1 Hypo-osmolality and hyponatremia (principal); J44.9 Chronic obstructive pulmonary disease, unspecified; E78.5 Hyperlipidemia, unspecified; N40.0 Benign prostatic hyperplasia without lower urinary tract symptoms; I25.10 Atherosclerotic heart disease of native coronary artery without angina pectoris; Z95.1 Presence of aortocoronary bypass graft; E83.42 Hypomagnesemia; I25.2 Old myocardial infarction; I44.0 Atrioventricular block, first degree; I11.0 Hypertensive heart disease with heart failure; I50.22 Chronic systolic (congestive) heart failure; I25.5 Ischemic cardiomyopathy; I48.0 Paroxysmal atrial fibrillation; F17.210 Nicotine dependence, cigarettes, uncomplicated; F10.230 Alcohol dependence with withdrawal, uncomplicated
CPT/HCPCS: 36415; 70450-TC; 71045-TC-FY; 76705-TC; 80048; 80053; 80307; 81003; 82010; 82272; 82533; 82803; 82962; 83036; 83735; 83880; 83930; 83935; 84100; 84300; 84439; 84443; 84484; 85025; 85610; 85730; 87086; 87635; 93005; 93010; 93306-TC; 97116-GP; 99291; J2597

== ENCOUNTER 2023-07-10 19:46 | Inpatient (IN) | payer OTHER ==
[2023-07-10] MEDS ORDERED: ASPIRIN 81 MG CHEWABLE TABLETS ONE (20:09)
[2023-07-10] MEDS ORDERED: ONDANSETRON 4 MG/2 ML VIAL ONE ×2 (20:10→21:40)
[2023-07-10] MEDS ORDERED: ASPIRIN 81 MG CHEWABLE TABLETS PO ONE (20:11)
[2023-07-10] MEDS ORDERED: ONDANSETRON 4 MG/2 ML VIAL IVPUSH ONE ×2 (20:12→21:37)
[2023-07-10 20:42] LABS: BASO % 0.3 % (0-2.0); EOS % 1.7 % (0-4.5); HEMATOCRIT 33.5 % (35.4-49); HEMOGLOBIN 11.2 GM/dL (11.7-16.9); LYMPH % 25.5 % (8-40); MCH 27.1 pg (25.7-33.7); MCHC 33.6 g/dl (32.0-35.9); MEAN CELL VOLUME 80.7 fl (80-96); MEAN PLT VOLUME 7.3 fl (7.5-11.1); NEUT % 63.5 % (42.8-82.8); PLATELET COUNT 381 10^3/uL (134-434); RBC 4.15 M/mm3 (4.00-5.60); WHITE BLOOD COUNT 7.8 K/mm3 (4.0-10.0)
[2023-07-10 20:56] LABS: INR 1.13 (0.83-1.09); PROTHROMBIN TIME (PATIENT) 13.1 SEC (9.7-13.0)
[2023-07-10 20:59] LABS: ACTIVATED PTT 33.6 SECONDS (25.2-36.5)
[2023-07-10 21:09] LABS: CHLORIDE 66 mmol/L (98-107); POTASSIUM 4.9 mmol/L (3.5-5.1)
[2023-07-10 21:11] LABS: ALBUMIN 3.3 g/dl (3.4-5.0); CALCIUM 8.4 mg/dL (8.5-10.1); CO2 23 mmol/L (21-32); GLUCOSE,RANDOM 133 mg/dL (74-106); MAGNESIUM 1.8 mg/dL (1.8-2.4)
[2023-07-10 21:14] LABS: CREATININE 0.5 mg/dL (0.55-1.3); SGOT/AST 70 U/L (15-37); SGPT/ALT 53 U/L (13-61)
[2023-07-10 21:15] LABS: PHOSPHOROUS 2.9 mg/dL (2.5-4.9)
[2023-07-10 21:16] LABS: BILIRUBIN,TOTAL 0.9 mg/dL (0.2-1); TOT PROT 7.9 g/dl (6.4-8.2)
[2023-07-10 21:17] LABS: ALK PHOS 83 U/L (45-117)
[2023-07-10 22:07] LABS: ANION GAP 16 mmol/L (4-13); BLOOD UREA NITROGEN 2.6 mg/dL (7-18); SODIUM 105 mmol/L (136-145)
[2023-07-10] MEDS ORDERED: SODIUM CHLORIDE 3% 500 ML/500 ML INFUS.BAG IV ONE (22:38)
[2023-07-10] MEDS ORDERED: chlordiazePOXIDE HCL 25 MG CAPSULE PO ONE (22:55)
[2023-07-10] MEDS ORDERED: SODIUM CHLORIDE 1,000 ML IV SCH (23:00)
[2023-07-10 23:04] LABS: EPI CELLS 1 /uL (0-25.1); HYALINE CASTS 0 /uL (0-3.1); URINE APPEARANCE CLEAR; URINE BACTERIA 710 /uL (0-1359); URINE BILIRUBIN NEGATIVE (NEGATIVE); URINE COLOR YELLOW; URINE GLUCOSE (UA) NEGATIVE (NEGATIVE); URINE KETONE NEGATIVE (NEGATIVE); URINE LEUK ESTERASE TRACE (NEGATIVE); URINE NITRITE NEGATIVE (NEGATIVE); URINE PROTEIN NEGATIVE (NEGATIVE); URINE RBC 4 /uL (0-23.9); URINE UROBILINOGEN 0.2 mg/dL (0.2-1.0); URINE WBC 1 /uL (0-25.8)
[2023-07-10] MEDS ORDERED: chlordiazePOXIDE HCL 25 MG CAPSULE ONE (23:30)
[2023-07-10 23:37] LABS: VENOUS BASE EXCESS 1.4 mmol/L (-2-2); VENOUS O2 SATURATION 59.1 % (70-80); VENOUS PCO2 33.7 mmHg (38-52); VENOUS PH 7.48 (7.310-7.410)
[2023-07-10 23:52] LABS: CHLORIDE 70 mmol/L (98-107)
[2023-07-10 23:54] LABS: CALCIUM 8.5 mg/dL (8.5-10.1); CO2 23 mmol/L (21-32); GLUCOSE,RANDOM 86 mg/dL (74-106)
[2023-07-10 23:58] LABS: CREATININE 0.4 mg/dL (0.55-1.3)
[2023-07-10 23:59] LABS: ANION GAP 15 mmol/L (4-13); BLOOD UREA NITROGEN 2.7 mg/dL (7-18); SODIUM 109 mmol/L (136-145)
[2023-07-11] MEDS ORDERED: ALBUTEROL SO4 0.083% IH SOL 2.5 MG/3 ML VIAL.NEB. NEB PRN (00:01)
[2023-07-11] MEDS ORDERED: ONDANSETRON 4 MG/2 ML VIAL IVPUSH PRN (00:47)
[2023-07-11] MEDS ORDERED: MAGNESIUM 1GM/D5W - 1 GM/100 ML IVPB IVPB ONE ×2 (00:50→02:30)
[2023-07-11 01:16] LABS: URINE UREA NITROGEN 39 mg/dL (350-1000)
[2023-07-11] MEDS ORDERED: MAGNESIUM SULFATE IN WATER 2 GM/50 ML IVPB IVPB ONE (01:30)
[2023-07-11] MEDS: PANTOPRAZOLE SODIUM 40 MG VIAL IVPUSH SCH ×2 (01:55→09:42)
[2023-07-11 02:35] LABS: CHLORIDE 72 mmol/L (98-107); POTASSIUM 3.9 mmol/L (3.5-5.1)
[2023-07-11 02:40] LABS: ALBUMIN 3.5 g/dl (3.4-5.0); CALCIUM 8.6 mg/dL (8.5-10.1); GLUCOSE,RANDOM 104 mg/dL (74-106)
[2023-07-11 02:41] LABS: CO2 25 mmol/L (21-32)
[2023-07-11 02:44] LABS: CREATININE 0.4 mg/dL (0.55-1.3); SGOT/AST 43 U/L (15-37); SGPT/ALT 48 U/L (13-61)
[2023-07-11 02:45] LABS: BILIRUBIN,TOTAL 0.9 mg/dL (0.2-1); TOT PROT 7.3 g/dl (6.4-8.2)
[2023-07-11 02:47] LABS: ALK PHOS 80 U/L (45-117)
[2023-07-11 02:48] LABS: ANION GAP 14 mmol/L (4-13); BLOOD UREA NITROGEN 2.7 mg/dL (7-18); SODIUM 112 mmol/L (136-145)
[2023-07-11] MEDS: THIAMINE HCL 200 MG/2 ML VIAL IVPB SCH ×3 (02:54→15:23)
[2023-07-11] MEDS ORDERED: SODIUM CHLORIDE 0.45% 1,000 ML IV SCH (03:00)
[2023-07-11 05:44] LABS: INR 1.1 (0.83-1.09); PROTHROMBIN TIME (PATIENT) 12.8 SEC (9.7-13.0)
[2023-07-11 05:47] LABS: ACTIVATED PTT 31.6 SECONDS (25.2-36.5)
[2023-07-11 05:53] LABS: CHLORIDE 77 mmol/L (98-107); POTASSIUM 3.9 mmol/L (3.5-5.1)
[2023-07-11 05:55] LABS: ALBUMIN 3.4 g/dl (3.4-5.0); CALCIUM 8.7 mg/dL (8.5-10.1)
[2023-07-11 05:56] LABS: CO2 28 mmol/L (21-32); GLUCOSE,RANDOM 142 mg/dL (74-106); MAGNESIUM 2.8 mg/dL (1.8-2.4)
[2023-07-11 05:58] LABS: BASO % 0.6 % (0-2.0); EOS % 2.4 % (0-4.5); HEMATOCRIT 32.5 % (35.4-49); HEMOGLOBIN 10.8 GM/dL (11.7-16.9); LYMPH % 22.2 % (8-40); MCHC 33.4 g/dl (32.0-35.9); MEAN CELL VOLUME 80.9 fl (80-96); MEAN PLT VOLUME 7.5 fl (7.5-11.1); MONO % 10.8 % (3.8-10.2); PLATELET COUNT 369 10^3/uL (134-434); RBC 4.01 M/mm3 (4.00-5.60); RDW 19.2 % (11.9-15.9); WHITE BLOOD COUNT 5.8 K/mm3 (4.0-10.0)
[2023-07-11 05:59] LABS: CREATININE 0.6 mg/dL (0.55-1.3); PHOSPHOROUS 3.4 mg/dL (2.5-4.9); SGOT/AST 50 U/L (15-37); SGPT/ALT 50 U/L (13-61)
[2023-07-11 06:00] LABS: BILIRUBIN,TOTAL 0.9 mg/dL (0.2-1); TOT PROT 7.2 g/dl (6.4-8.2)
[2023-07-11 06:01] LABS: ALK PHOS 80 U/L (45-117)
[2023-07-11 06:09] LABS: ANION GAP 11 mmol/L (4-13); SODIUM 116 mmol/L (136-145)
[2023-07-11] MEDS ORDERED: DEXTROSE 5%-WATER 500 ML PVC-FREE INFUS.BAG IV ONE (06:40)
[2023-07-11] MEDS ORDERED: INSULIN SLIDING SCALE (NOVOLOG) 1 VIAL SQ SCH (07:00)
[2023-07-11] MEDS ORDERED: LEVOTHYROXINE NA 50 MCG TABLET (FP) PO SCH (07:00)
[2023-07-11] MEDS ORDERED: INSULIN (NOVOLOG) ASPART 100 UNITS/ML 10ML VIAL ONE (07:01)
[2023-07-11] MEDS: LEVOTHYROXINE NA 75 MCG TABLET (FP) PO SCH (07:02)
[2023-07-11] MEDS: INSULIN SLIDING SCALE (NOVOLOG) 1 VIAL SQ SCH ×4 (07:02→21:44)
[2023-07-11] MEDS ORDERED: DESMOPRESSIN ACETATE 4 MCG/ML AMP IVPB ONE ×2 (07:30→10:51)
[2023-07-11] MEDS: TAMSULOSIN HCL 0.4 MG CAP PO SCH (08:40)
[2023-07-11 08:59] LABS: CHLORIDE 81 mmol/L (98-107); POTASSIUM 3.9 mmol/L (3.5-5.1)
[2023-07-11 09:09] LABS: GLUCOSE,RANDOM 182 mg/dL (74-106); SGPT/ALT 47 U/L (13-61)
[2023-07-11 09:10] LABS: ALBUMIN 3.1 g/dl (3.4-5.0); CALCIUM 8.3 mg/dL (8.5-10.1); CO2 27 mmol/L (21-32)
[2023-07-11 09:11] LABS: CREATININE 0.6 mg/dL (0.55-1.3); TOT PROT 6.9 g/dl (6.4-8.2)
[2023-07-11 09:12] LABS: ALK PHOS 79 U/L (45-117); ANION GAP 10 mmol/L (4-13); BLOOD UREA NITROGEN 2.7 mg/dL (7-18); SGOT/AST 44 U/L (15-37); SODIUM 117 mmol/L (136-145)
[2023-07-11] MEDS: MUPIROCIN 2% TOPICAL OINTMENT FOR DECOLONIZATION NS SCH ×2 (09:41→21:08)
[2023-07-11] MEDS: metoPROLOL SUCCINATE 25 MG TAB.SR.24H (FP) PO SCH (09:41)
[2023-07-11] MEDS: GABAPENTIN 100 MG CAPSULE PO SCH ×2 (09:41→21:08)
[2023-07-11] MEDS: ASPIRIN COATED 81 MG TABLET.EC PO SCH (09:41)
[2023-07-11] MEDS: LISINOPRIL 5 MG TABLET PO SCH (09:42)
[2023-07-11] MEDS: NICOTINE 21 MG/24 HOURS TOPICAL PATCH TD SCH (09:42)
[2023-07-11] MEDS: FOLIC ACID 1 MG TABLET (FP) PO SCH (09:42)
[2023-07-11] MEDS: APIXABAN 2.5 MG TABLET PO SCH ×2 (09:46→21:08)
[2023-07-11] MEDS ORDERED: AMIODARONE HCL 200 MG TABLET PO SCH (10:00)
[2023-07-11] MEDS ORDERED: APIXABAN 2.5 MG TABLET PO SCH (10:00)
[2023-07-11] MEDS ORDERED: GABAPENTIN 100 MG CAPSULE PO SCH (10:00)
[2023-07-11] MEDS: LORazepam 1 MG TABLET PO PRN ×2 (10:23→22:43)
[2023-07-11] MEDS: ACETAMINOPHEN 325 MG TABLET (FP) PO PRN ×2 (10:25→20:49)
[2023-07-11] MEDS ORDERED: DESMOPRESSIN ACETATE 2 MCG in SODIUM CHLORIDE 50 ML IVPB ONE (13:00)
[2023-07-11] MEDS: FLUTICASONE/UMECLIDIN/VILANTER(100-62.5-25 TRELEGY ELLIPTA) INAHLER IH SCH (15:23)
[2023-07-11 16:14] LABS: CHLORIDE 82 mmol/L (98-107)
[2023-07-11 16:17] LABS: BLOOD UREA NITROGEN 3.7 mg/dL (7-18); CALCIUM 8.3 mg/dL (8.5-10.1); CO2 26 mmol/L (21-32); GLUCOSE,RANDOM 95 mg/dL (74-106)
[2023-07-11 16:21] LABS: ANION GAP 9 mmol/L (4-13); CREATININE 0.5 mg/dL (0.55-1.3); POTASSIUM 4.1 mmol/L (3.5-5.1); SODIUM 118 mmol/L (136-145)
[2023-07-11] MEDS: BENZOCAINE/MENTHOL 1 EACH LOZENGE MM PRN (20:49)
[2023-07-11] MEDS: ATORVASTATIN CA 80 MG TABLET (FP) PO SCH (21:08)
[2023-07-11] MEDS: CHLORHEXIDINE GLUCONATE 4% CLEANSER FOR DECOLONIZATION TP SCH (21:08)
[2023-07-11] MEDS: amLODIPine BESYLATE 2.5 MG TABLET (FP) PO SCH (21:08)
[2023-07-11] MEDS ORDERED: amLODIPine BESYLATE 2.5 MG TABLET (FP) PO SCH (22:00)
[2023-07-12] MEDS ORDERED: MELATONIN 5 MG TABLETS PO ONE (00:07)
[2023-07-12] MEDS: MELATONIN 3 MG, MELATONIN 5 MG PO SCH (00:36)
[2023-07-12] MEDS: guaiFENesin/D-M SUGAR-FREE/ACLHOL-FREE (200 MG/10 MG) 5 ML PO PRN ×2 (00:36→21:31)
[2023-07-12 03:12] LABS: CHLORIDE 82 mmol/L (98-107); POTASSIUM 3.9 mmol/L (3.5-5.1)
[2023-07-12 03:16] LABS: BLOOD UREA NITROGEN 8.8 mg/dL (7-18); CALCIUM 7.8 mg/dL (8.5-10.1); CO2 25 mmol/L (21-32); GLUCOSE,RANDOM 114 mg/dL (74-106)
[2023-07-12 03:17] LABS: CREATININE 0.7 mg/dL (0.55-1.3)
[2023-07-12 03:57] LABS: TOTAL IRON BINDING CAPACITY 264 ug/dL (250-450)
[2023-07-12 04:27] LABS: ANION GAP 11 mmol/L (4-13); SODIUM 118 mmol/L (136-145)
[2023-07-12] MEDS: LEVOTHYROXINE NA 75 MCG TABLET (FP) PO SCH (06:23)
[2023-07-12] MEDS: INSULIN SLIDING SCALE (NOVOLOG) 1 VIAL SQ SCH ×4 (06:28→21:26)
[2023-07-12 07:31] LABS: BASO % 0.5 % (0-2.0); EOS % 2.5 % (0-4.5); HEMATOCRIT 29.7 % (35.4-49); HEMOGLOBIN 9.8 GM/dL (11.7-16.9); LYMPH % 18.5 % (8-40); MCHC 33.1 g/dl (32.0-35.9); MEAN CELL VOLUME 81.5 fl (80-96); MEAN PLT VOLUME 7.5 fl (7.5-11.1); MONO % 12.9 % (3.8-10.2); NEUT % 65.6 % (42.8-82.8); PLATELET COUNT 328 10^3/uL (134-434); RBC 3.64 M/mm3 (4.00-5.60); RDW 18.6 % (11.9-15.9); WHITE BLOOD COUNT 5.5 K/mm3 (4.0-10.0)
[2023-07-12 07:48] LABS: CHLORIDE 82 mmol/L (98-107); POTASSIUM 3.9 mmol/L (3.5-5.1)
[2023-07-12 07:54] LABS: CALCIUM 8.2 mg/dL (8.5-10.1); CO2 27 mmol/L (21-32); GLUCOSE,RANDOM 95 mg/dL (74-106)
[2023-07-12 07:57] LABS: CREATININE 0.7 mg/dL (0.55-1.3); IRON SERUM 30 ug/dL (50-175); SGOT/AST 46 U/L (15-37); SGPT/ALT 48 U/L (13-61)
[2023-07-12 07:59] LABS: BILIRUBIN,TOTAL 0.8 mg/dL (0.2-1); TOT PROT 6.6 g/dl (6.4-8.2)
[2023-07-12 08:00] LABS: ALK PHOS 72 U/L (45-117)
[2023-07-12 08:14] LABS: ANION GAP 10 mmol/L (4-13); SODIUM 119 mmol/L (136-145)
[2023-07-12] MEDS: GABAPENTIN 100 MG CAPSULE PO SCH ×2 (09:14→21:32)
[2023-07-12] MEDS: TAMSULOSIN HCL 0.4 MG CAP PO SCH (09:14)
[2023-07-12] MEDS: ASPIRIN COATED 81 MG TABLET.EC PO SCH (09:14)
[2023-07-12] MEDS: FOLIC ACID 1 MG TABLET (FP) PO SCH (09:14)
[2023-07-12] MEDS: APIXABAN 2.5 MG TABLET PO SCH ×2 (09:14→21:31)
[2023-07-12] MEDS: LISINOPRIL 5 MG TABLET PO SCH (09:15)
[2023-07-12] MEDS: metoPROLOL SUCCINATE 25 MG TAB.SR.24H (FP) PO SCH (09:15)
[2023-07-12] MEDS: NICOTINE 21 MG/24 HOURS TOPICAL PATCH TD SCH (09:15)
[2023-07-12] MEDS: BENZOCAINE/MENTHOL 1 EACH LOZENGE MM PRN ×2 (09:15→16:38)
[2023-07-12] MEDS: PANTOPRAZOLE SODIUM 40 MG VIAL IVPUSH SCH (09:15)
[2023-07-12] MEDS: LORazepam 1 MG TABLET PO PRN (09:21)
[2023-07-12] MEDS: ACETAMINOPHEN 325 MG TABLET (FP) PO PRN (09:21)
[2023-07-12] MEDS: FLUTICASONE/UMECLIDIN/VILANTER(100-62.5-25 TRELEGY ELLIPTA) INAHLER IH SCH (09:42)
[2023-07-12] MEDS: MUPIROCIN 2% TOPICAL OINTMENT FOR DECOLONIZATION NS SCH ×2 (09:43→21:31)
[2023-07-12] MEDS ORDERED: INSULIN (NOVOLOG) ASPART 100 UNITS/ML 10ML VIAL ONE (21:07)
[2023-07-12] MEDS ORDERED: traMADol HCL 50 MG TABLET PO ONE (21:15)
[2023-07-12] MEDS ORDERED: diphenhydrAMINE HCL 25 MG CAPSULE (FP) PO ONE (21:15)
[2023-07-12] MEDS: amLODIPine BESYLATE 2.5 MG TABLET (FP) PO SCH (21:31)
[2023-07-12] MEDS: ATORVASTATIN CA 80 MG TABLET (FP) PO SCH (21:31)
[2023-07-12] MEDS: CHLORHEXIDINE GLUCONATE 4% CLEANSER FOR DECOLONIZATION TP SCH (21:32)
[2023-07-13] MEDS: MELATONIN 3 MG, MELATONIN 5 MG PO SCH ×2 (00:34→21:01)
[2023-07-13] MEDS: LEVOTHYROXINE NA 75 MCG TABLET (FP) PO SCH (06:05)
[2023-07-13] MEDS: INSULIN SLIDING SCALE (NOVOLOG) 1 VIAL SQ SCH ×4 (06:10→21:02)
[2023-07-13 07:32] LABS: POTASSIUM 4.4 mmol/L (3.5-5.1)
[2023-07-13 07:34] LABS: CALCIUM 8.1 mg/dL (8.5-10.1)
[2023-07-13 07:35] LABS: BLOOD UREA NITROGEN 7.4 mg/dL (7-18)
[2023-07-13 07:38] LABS: CREATININE 0.5 mg/dL (0.55-1.3)
[2023-07-13] MEDS ORDERED: DEXTROSE 5%-WATER 500 ML INFUS.BAG IV ONE (08:45)
[2023-07-13] MEDS: TAMSULOSIN HCL 0.4 MG CAP PO SCH (08:53)
[2023-07-13] MEDS: NICOTINE 21 MG/24 HOURS TOPICAL PATCH TD SCH ×2 (09:05→09:13)
[2023-07-13] MEDS: FLUTICASONE/UMECLIDIN/VILANTER(100-62.5-25 TRELEGY ELLIPTA) INAHLER IH SCH (09:05)
[2023-07-13] MEDS: PANTOPRAZOLE SODIUM 40 MG VIAL IVPUSH SCH (09:06)
[2023-07-13] MEDS: FOLIC ACID 1 MG TABLET (FP) PO SCH (09:06)
[2023-07-13] MEDS: GABAPENTIN 100 MG CAPSULE PO SCH ×2 (09:06→21:01)
[2023-07-13] MEDS: MUPIROCIN 2% TOPICAL OINTMENT FOR DECOLONIZATION NS SCH ×2 (09:06→21:02)
[2023-07-13] MEDS: ASPIRIN COATED 81 MG TABLET.EC PO SCH (09:06)
[2023-07-13] MEDS: APIXABAN 2.5 MG TABLET PO SCH ×2 (09:06→21:02)
[2023-07-13] MEDS: metoPROLOL SUCCINATE 25 MG TAB.SR.24H (FP) PO SCH (09:06)
[2023-07-13] MEDS: LISINOPRIL 5 MG TABLET PO SCH (09:06)
[2023-07-13] MEDS ORDERED: DESMOPRESSIN ACETATE 4 MCG/ML AMP IVPB ONE (10:30)
[2023-07-13] MEDS: LORazepam 1 MG TABLET PO PRN (13:25)
[2023-07-13] MEDS: guaiFENesin/D-METHORPHAN HB 10 ML UNIT-DOSE CUPS PO PRN ×2 (14:11→21:06)
[2023-07-13] MEDS: BENZOCAINE/MENTHOL 1 EACH LOZENGE MM PRN ×2 (15:18→21:06)
[2023-07-13 19:23] LABS: POTASSIUM 4.3 mmol/L (3.5-5.1)
[2023-07-13 19:25] LABS: CALCIUM 7.9 mg/dL (8.5-10.1)
[2023-07-13 19:26] LABS: BLOOD UREA NITROGEN 8.6 mg/dL (7-18)
[2023-07-13 19:29] LABS: CREATININE 0.7 mg/dL (0.55-1.3)
[2023-07-13] MEDS ORDERED: INSULIN (NOVOLOG) ASPART 100 UNITS/ML 10ML VIAL ONE (20:48)
[2023-07-13] MEDS: ATORVASTATIN CA 80 MG TABLET (FP) PO SCH (21:01)
[2023-07-13] MEDS: amLODIPine BESYLATE 2.5 MG TABLET (FP) PO SCH (21:01)
[2023-07-13] MEDS: CHLORHEXIDINE GLUCONATE 4% CLEANSER FOR DECOLONIZATION TP SCH (21:02)
[2023-07-13] MEDS ORDERED: traMADol HCL 50 MG TABLET PO ONE (21:15)
[2023-07-14] MEDS: LORazepam 1 MG TABLET PO PRN (05:30)
[2023-07-14] MEDS: INSULIN SLIDING SCALE (NOVOLOG) 1 VIAL SQ SCH ×4 (06:07→21:17)
[2023-07-14] MEDS: LEVOTHYROXINE NA 75 MCG TABLET (FP) PO SCH (06:08)
[2023-07-14 08:03] LABS: POTASSIUM 4.5 mmol/L (3.5-5.1)
[2023-07-14 08:06] LABS: CALCIUM 7.9 mg/dL (8.5-10.1)
[2023-07-14 08:07] LABS: ALBUMIN 2.9 g/dl (3.4-5.0); BLOOD UREA NITROGEN 6.6 mg/dL (7-18); MAGNESIUM 1.7 mg/dL (1.8-2.4)
[2023-07-14 08:10] LABS: BASO % 0.5 % (0-2.0); EOS % 9.7 % (0-4.5); HEMATOCRIT 27.4 % (35.4-49); HEMOGLOBIN 8.9 GM/dL (11.7-16.9); LYMPH % 25.3 % (8-40); MCHC 32.5 g/dl (32.0-35.9); MEAN CELL VOLUME 83.2 fl (80-96); MEAN PLT VOLUME 7.6 fl (7.5-11.1); MONO % 9.9 % (3.8-10.2); NEUT % 54.6 % (42.8-82.8); PLATELET COUNT 329 10^3/uL (134-434); RBC 3.29 M/mm3 (4.00-5.60); RDW 18.1 % (11.9-15.9)
[2023-07-14 08:10] LABS: CREATININE 0.6 mg/dL (0.55-1.3); PHOSPHOROUS 3.2 mg/dL (2.5-4.9)
[2023-07-14 08:11] LABS: TOT PROT 6.4 g/dl (6.4-8.2)
[2023-07-14 08:12] LABS: BILIRUBIN,TOTAL 0.5 mg/dL (0.2-1)
[2023-07-14] MEDS ORDERED: MAGNESIUM SULF 50% (8.12 MEQ/2 ML-1 GM VIAL) IVPB ONE (08:29)
[2023-07-14] MEDS: TAMSULOSIN HCL 0.4 MG CAP PO SCH (08:59)
[2023-07-14] MEDS: PANTOPRAZOLE SODIUM 40 MG VIAL IVPUSH SCH (08:59)
[2023-07-14] MEDS: NICOTINE 21 MG/24 HOURS TOPICAL PATCH TD SCH (09:00)
[2023-07-14] MEDS: FOLIC ACID 1 MG TABLET (FP) PO SCH (09:00)
[2023-07-14] MEDS: LISINOPRIL 5 MG TABLET PO SCH (09:00)
[2023-07-14] MEDS: APIXABAN 2.5 MG TABLET PO SCH ×2 (09:00→21:08)
[2023-07-14] MEDS: metoPROLOL SUCCINATE 25 MG TAB.SR.24H (FP) PO SCH (09:00)
[2023-07-14] MEDS: GABAPENTIN 100 MG CAPSULE PO SCH ×2 (09:00→21:08)
[2023-07-14] MEDS: MUPIROCIN 2% TOPICAL OINTMENT FOR DECOLONIZATION NS SCH ×2 (09:00→21:17)
[2023-07-14] MEDS: ASPIRIN COATED 81 MG TABLET.EC PO SCH (09:00)
[2023-07-14] MEDS ORDERED: VILANTER IH SCH (10:00)
[2023-07-14] MEDS ORDERED: FLUTICASONE IH SCH (10:00)
[2023-07-14] MEDS ORDERED: UMECLIDIN IH SCH (10:00)
[2023-07-14] MEDS ORDERED: LORazepam 1 MG TABLET PO PRN (12:00)
[2023-07-14 20:21] LABS: POTASSIUM 4.8 mmol/L (3.5-5.1)
[2023-07-14 20:24] LABS: BLOOD UREA NITROGEN 8.4 mg/dL (7-18); CALCIUM 8.3 mg/dL (8.5-10.1)
[2023-07-14 20:28] LABS: CREATININE 0.7 mg/dL (0.55-1.3)
[2023-07-14] MEDS: amLODIPine BESYLATE 2.5 MG TABLET (FP) PO SCH (21:07)
[2023-07-14] MEDS: ATORVASTATIN CA 80 MG TABLET (FP) PO SCH (21:08)
[2023-07-14] MEDS: MELATONIN 3 MG, MELATONIN 5 MG PO SCH (21:08)
[2023-07-14] MEDS: guaiFENesin/D-METHORPHAN HB 10 ML UNIT-DOSE CUPS PO PRN (21:09)
[2023-07-14] MEDS: ACETAMINOPHEN 325 MG TABLET (FP) PO PRN (21:09)
[2023-07-14] MEDS: CHLORHEXIDINE GLUCONATE 4% CLEANSER FOR DECOLONIZATION TP SCH (21:17)
[2023-07-14] MEDS: LORazepam 0.5 MG TABLET PO PRN (23:37)
[2023-07-15] MEDS: LEVOTHYROXINE NA 75 MCG TABLET (FP) PO SCH (06:27)
[2023-07-15] MEDS: ACETAMINOPHEN 325 MG TABLET (FP) PO PRN (06:33)
[2023-07-15] MEDS: INSULIN SLIDING SCALE (NOVOLOG) 1 VIAL SQ SCH ×4 (06:36→21:52)
[2023-07-15 08:28] LABS: HEMATOCRIT 28.6 % (35.4-49); HEMOGLOBIN 9.3 GM/dL (11.7-16.9); MCHC 32.5 g/dl (32.0-35.9); MEAN CELL VOLUME 83.2 fl (80-96); MEAN PLT VOLUME 7.3 fl (7.5-11.1); PLATELET COUNT 322 10^3/uL (134-434); RBC 3.44 M/mm3 (4.00-5.60); RDW 18.6 % (11.9-15.9)
[2023-07-15 08:42] LABS: POTASSIUM 4.4 mmol/L (3.5-5.1)
[2023-07-15 08:50] LABS: MAGNESIUM 1.7 mg/dL (1.8-2.4)
[2023-07-15 08:52] LABS: CALCIUM 8.5 mg/dL (8.5-10.1)
[2023-07-15 08:53] LABS: BLOOD UREA NITROGEN 5.7 mg/dL (7-18); CREATININE 0.6 mg/dL (0.55-1.3)
[2023-07-15] MEDS ORDERED: ACETAMINOPHEN 325 MG TABLET (FP) PO PRN (09:51)
[2023-07-15] MEDS ORDERED: ALBUTEROL SO4 0.083% IH SOL 2.5 MG/3 ML VIAL.NEB. NEB PRN (09:51)
[2023-07-15] MEDS ORDERED: BENZOCAINE/MENTHOL 1 EACH LOZENGE MM PRN (09:51)
[2023-07-15] MEDS ORDERED: PANTOPRAZOLE SODIUM 40 MG VIAL IVPUSH SCH (10:00)
[2023-07-15] MEDS ORDERED: FLUTICASONE/UMECLIDIN/VILANTER(100-62.5-25 TRELEGY ELLIPTA) INAHLER IH SCH ×2 (10:00→10:18)
[2023-07-15] MEDS: metoPROLOL SUCCINATE 25 MG TAB.SR.24H (FP) PO SCH (10:43)
[2023-07-15] MEDS: FOLIC ACID 1 MG TABLET (FP) PO SCH (10:43)
[2023-07-15] MEDS: GABAPENTIN 100 MG CAPSULE PO SCH ×2 (10:43→21:50)
[2023-07-15] MEDS: NICOTINE 21 MG/24 HOURS TOPICAL PATCH TD SCH (10:43)
[2023-07-15] MEDS: ASPIRIN COATED 81 MG TABLET.EC PO SCH (10:44)
[2023-07-15] MEDS: APIXABAN 2.5 MG TABLET PO SCH ×2 (10:44→21:50)
[2023-07-15] MEDS: LISINOPRIL 5 MG TABLET PO SCH (10:44)
[2023-07-15] MEDS ORDERED: MAGNESIUM SULFATE IN WATER 2 GM/50 ML IVPB IVPB ONE (10:57)
[2023-07-15] MEDS ORDERED: TAMSULOSIN HCL 0.4 MG CAP PO ONE (11:30)
[2023-07-15] MEDS: traMADol HCL 50 MG TABLET PO PRN ×2 (11:46→21:47)
[2023-07-15] MEDS: guaiFENesin/D-METHORPHAN HB 10 ML UNIT-DOSE CUPS PO PRN ×2 (13:15→19:01)
[2023-07-15] MEDS: LORazepam 0.5 MG TABLET PO PRN (21:48)
[2023-07-15] MEDS: MELATONIN 3 MG, MELATONIN 5 MG PO SCH (21:50)
[2023-07-15] MEDS: ATORVASTATIN CA 80 MG TABLET (FP) PO SCH (21:50)
[2023-07-15] MEDS: amLODIPine BESYLATE 2.5 MG TABLET (FP) PO SCH (21:51)
[2023-07-16] MEDS: INSULIN SLIDING SCALE (NOVOLOG) 1 VIAL SQ SCH ×4 (06:20→21:44)
[2023-07-16] MEDS: LEVOTHYROXINE NA 75 MCG TABLET (FP) PO SCH (06:20)
[2023-07-16] MEDS ORDERED: TAMSULOSIN HCL 0.4 MG CAP PO SCH (08:30)
[2023-07-16] MEDS: LISINOPRIL 5 MG TABLET PO SCH (10:11)
[2023-07-16] MEDS: TAMSULOSIN HCL 0.4 MG CAP PO SCH (10:11)
[2023-07-16] MEDS: NICOTINE 21 MG/24 HOURS TOPICAL PATCH TD SCH (10:11)
[2023-07-16] MEDS: ASPIRIN COATED 81 MG TABLET.EC PO SCH (10:11)
[2023-07-16] MEDS: metoPROLOL SUCCINATE 25 MG TAB.SR.24H (FP) PO SCH (10:12)
[2023-07-16] MEDS: PANTOPRAZOLE 40 MG TABLET PO SCH (10:13)
[2023-07-16] MEDS: GABAPENTIN 100 MG CAPSULE PO SCH ×2 (10:13→21:10)
[2023-07-16] MEDS: FOLIC ACID 1 MG TABLET (FP) PO SCH (10:13)
[2023-07-16] MEDS: APIXABAN 2.5 MG TABLET PO SCH ×2 (10:13→21:11)
[2023-07-16] MEDS: FLUTICASONE/UMECLIDIN/VILANTER(100-62.5-25 TRELEGY ELLIPTA) INAHLER IH SCH (10:14)
[2023-07-16] MEDS: guaiFENesin/D-METHORPHAN HB 10 ML UNIT-DOSE CUPS PO PRN (11:32)
[2023-07-16] MEDS: DOCUSATE SODIUM 100 MG CAPSULE (FP) PO SCH ×2 (13:30→21:12)
[2023-07-16 14:00] LABS: POTASSIUM 4.4 mmol/L (3.5-5.1)
[2023-07-16 14:02] LABS: BLOOD UREA NITROGEN 5.5 mg/dL (7-18)
[2023-07-16 14:05] LABS: CREATININE 0.7 mg/dL (0.55-1.3)
[2023-07-16 14:08] LABS: CALCIUM 8.7 mg/dL (8.5-10.1)
[2023-07-16] MEDS: traMADol HCL 50 MG TABLET PO PRN ×2 (15:51→21:19)
[2023-07-16 16:35] VITALS: BMI 24.2
[2023-07-16] MEDS ORDERED: INSULIN (NOVOLOG) ASPART 100 UNITS/ML 10ML VIAL ONE (16:52)
[2023-07-16] MEDS: MELATONIN 3 MG, MELATONIN 5 MG PO SCH (21:08)
[2023-07-16] MEDS: amLODIPine BESYLATE 2.5 MG TABLET (FP) PO SCH (21:11)
[2023-07-16] MEDS: ATORVASTATIN CA 80 MG TABLET (FP) PO SCH (21:12)
[2023-07-17] MEDS: INSULIN SLIDING SCALE (NOVOLOG) 1 VIAL SQ SCH ×4 (06:20→22:25)
[2023-07-17] MEDS: LEVOTHYROXINE NA 75 MCG TABLET (FP) PO SCH (06:21)
[2023-07-17] MEDS: DOCUSATE SODIUM 100 MG CAPSULE (FP) PO SCH ×3 (06:21→22:25)
[2023-07-17 08:28] LABS: POTASSIUM 4.6 mmol/L (3.5-5.1)
[2023-07-17 08:33] LABS: CALCIUM 9.3 mg/dL (8.5-10.1)
[2023-07-17 08:34] LABS: BLOOD UREA NITROGEN 6.6 mg/dL (7-18)
[2023-07-17 08:37] LABS: CREATININE 0.5 mg/dL (0.55-1.3)
[2023-07-17] MEDS ORDERED: INSULIN (NOVOLOG) ASPART 100 UNITS/ML 10ML VIAL ONE ×3 (10:38→22:19)
[2023-07-17] MEDS: PANTOPRAZOLE 40 MG TABLET PO SCH (10:49)
[2023-07-17] MEDS: TAMSULOSIN HCL 0.4 MG CAP PO SCH (10:49)
[2023-07-17] MEDS: SODIUM CHLORIDE 1 GM TABLET PO SCH ×2 (10:50→22:10)
[2023-07-17] MEDS: NICOTINE 21 MG/24 HOURS TOPICAL PATCH TD SCH (10:50)
[2023-07-17] MEDS: FOLIC ACID 1 MG TABLET (FP) PO SCH (10:50)
[2023-07-17] MEDS: APIXABAN 2.5 MG TABLET PO SCH ×2 (10:50→22:09)
[2023-07-17] MEDS: GABAPENTIN 100 MG CAPSULE PO SCH ×2 (10:50→22:08)
[2023-07-17] MEDS: ASPIRIN COATED 81 MG TABLET.EC PO SCH (10:50)
[2023-07-17] MEDS: LISINOPRIL 5 MG TABLET PO SCH (10:50)
[2023-07-17] MEDS: FLUTICASONE/UMECLIDIN/VILANTER(100-62.5-25 TRELEGY ELLIPTA) INAHLER IH SCH (10:51)
[2023-07-17] MEDS: metoPROLOL SUCCINATE 25 MG TAB.SR.24H (FP) PO SCH (10:52)
[2023-07-17] MEDS: LORazepam 1 MG TABLET PO PRN ×2 (11:25→22:10)
[2023-07-17] MEDS: traMADol HCL 50 MG TABLET PO PRN ×2 (11:25→22:09)
[2023-07-17] MEDS: POLYETHYLENE GLYCOL (HEALTHYLAX) 3350 17 GM PACKET PO SCH (12:27)
[2023-07-17] MEDS: MELATONIN 3 MG, MELATONIN 5 MG PO SCH (22:08)
[2023-07-17] MEDS: ATORVASTATIN CA 80 MG TABLET (FP) PO SCH (22:08)
[2023-07-17] MEDS: amLODIPine BESYLATE 2.5 MG TABLET (FP) PO SCH (22:10)
[2023-07-18] MEDS: LEVOTHYROXINE NA 75 MCG TABLET (FP) PO SCH (06:14)
[2023-07-18] MEDS: DOCUSATE SODIUM 100 MG CAPSULE (FP) PO SCH (06:14)
[2023-07-18] MEDS: INSULIN SLIDING SCALE (NOVOLOG) 1 VIAL SQ SCH ×2 (06:15→11:56)
[2023-07-18 07:09] VITALS: PULSE 80; TEMP 98.6
[2023-07-18] MEDS: TAMSULOSIN HCL 0.4 MG CAP PO SCH ×2 (07:17→08:55)
[2023-07-18] MEDS: POLYETHYLENE GLYCOL (HEALTHYLAX) 3350 17 GM PACKET PO SCH (09:49)
[2023-07-18] MEDS: FOLIC ACID 1 MG TABLET (FP) PO SCH (09:49)
[2023-07-18] MEDS: PANTOPRAZOLE 40 MG TABLET PO SCH (09:49)
[2023-07-18] MEDS: APIXABAN 2.5 MG TABLET PO SCH (09:49)
[2023-07-18] MEDS: GABAPENTIN 100 MG CAPSULE PO SCH (09:49)
[2023-07-18] MEDS: ASPIRIN COATED 81 MG TABLET.EC PO SCH (09:49)
[2023-07-18] MEDS: NICOTINE 21 MG/24 HOURS TOPICAL PATCH TD SCH ×2 (09:49→09:56)
[2023-07-18] MEDS: SODIUM CHLORIDE 1 GM TABLET PO SCH (09:50)
[2023-07-18] MEDS: LISINOPRIL 5 MG TABLET PO SCH (09:50)
[2023-07-18] MEDS: metoPROLOL SUCCINATE 25 MG TAB.SR.24H (FP) PO SCH (09:50)
[2023-07-18] MEDS: FLUTICASONE/UMECLIDIN/VILANTER(100-62.5-25 TRELEGY ELLIPTA) INAHLER IH SCH (09:53)
[2023-07-18] MEDS ORDERED: INSULIN (NOVOLOG) ASPART 100 UNITS/ML 10ML VIAL ONE (11:45)
[2023-07-18 13:06] VITALS: BP 104/52; RESP 20
== END 2023-07-18 13:17 | disposition home or self-care (01) | DRG 425 ==
LOC: JER 19:46 → JERBED 23:23 → JICU 07-11 00:01 → J7W 07-14 16:25
PROVIDERS: ADMIT Internal Medicine Pulmonary Disease; ATTEND Internal Medicine
DX: E87.1 Hypo-osmolality and hyponatremia (principal); J44.9 Chronic obstructive pulmonary disease, unspecified; E78.5 Hyperlipidemia, unspecified; I11.0 Hypertensive heart disease with heart failure; F10.10 Alcohol abuse, uncomplicated; I25.10 Atherosclerotic heart disease of native coronary artery without angina pectoris; N40.0 Benign prostatic hyperplasia without lower urinary tract symptoms; I25.2 Old myocardial infarction; R94.31 Abnormal electrocardiogram [ECG] [EKG]; Z95.1 Presence of aortocoronary bypass graft; I48.0 Paroxysmal atrial fibrillation; I25.5 Ischemic cardiomyopathy; I50.22 Chronic systolic (congestive) heart failure; E03.9 Hypothyroidism, unspecified; D64.9 Anemia, unspecified; F10.130 Alcohol abuse with withdrawal, uncomplicated; F17.210 Nicotine dependence, cigarettes, uncomplicated; R33.9 Retention of urine, unspecified
CPT/HCPCS: 0241U-QW; 36415; 71045-TC-FY; 71275-TC; 74177-TC; 80048; 80053; 81003; 82436; 82550; 82553; 82728; 82803; 82962; 83540; 83550; 83735; 83880; 83930; 83935; 84100; 84300; 84436; 84443; 84479; 84484; 84540; 85025; 85027; 85045; 85379; 85610; 85730; 86850; 86900; 86901; 87086; 87186; 93005; 93010; 99285-25; J2597; Q9967

== ENCOUNTER 2023-12-24 08:47 | Inpatient (IN) | payer OTHER ==
[2023-12-24] MEDS ORDERED: morphine SULFATE 4 MG/ML VIAL ONE (11:30)
[2023-12-24] MEDS ORDERED: PIPERACILLIN/TAZOB 4.5 GM 4.5 GM/100 ML BAG IVPB ONE (11:30)
[2023-12-24 11:33] LABS: BASO % 1.3 % (0-2.0); EOS % 7.3 % (0-4.5); HEMATOCRIT 29.5 % (35.4-49); HEMOGLOBIN 9.6 GM/dL (11.7-16.9); LYMPH % 28.8 % (8-40); MCHC 32.3 g/dl (32.0-35.9); MEAN CELL VOLUME 80.4 fl (80-96); MEAN PLT VOLUME 7.6 fl (7.5-11.1); MONO % 12.4 % (3.8-10.2); NEUT % 50.2 % (42.8-82.8); PLATELET COUNT 317 10^3/uL (134-434); RBC 3.67 M/mm3 (4.00-5.60); RDW 19.7 % (11.9-15.9); WHITE BLOOD COUNT 6.7 K/mm3 (4.0-10.0)
[2023-12-24] MEDS: morphine CARPU-JECT 4 MG/1 ML DISP.SYRIN IVPUSH ONE (11:42)
[2023-12-24] MEDS: PIPERACILLIN/TAZOB 4.5 GM 4.5 GM/100 ML BAG IVPB ONE (11:43)
[2023-12-24] MEDS: SODIUM CHLORIDE 1,000 ML IV STA (11:43)
[2023-12-24 11:52] LABS: POTASSIUM 4.6 mmol/L (3.5-5.1)
[2023-12-24 11:53] LABS: CALCIUM 9.8 mg/dL (8.5-10.1)
[2023-12-24 11:54] LABS: ALBUMIN 3.4 g/dl (3.4-5.0); BLOOD UREA NITROGEN 12.3 mg/dL (7-18); MAGNESIUM 1.7 mg/dL (1.8-2.4)
[2023-12-24 11:57] LABS: CREATININE 0.8 mg/dL (0.55-1.3); PHOSPHOROUS 3.2 mg/dL (2.5-4.9)
[2023-12-24 11:59] LABS: BILIRUBIN,TOTAL 0.7 mg/dL (0.2-1); TOT PROT 7.8 g/dl (6.4-8.2)
[2023-12-24 12:02] LABS: N-TERMINAL BNP 4704.6 pg/ml (5-125)
[2023-12-24] MEDS ORDERED: VANCOMYCIN 1 GRAM (PRE-DOCKED) 1,000 MG/250 ML BAG IVPB ONE (12:18)
[2023-12-24 12:24] LABS: ERYTHROCYTE SEDIMENTATION RATE 54 mm/hr (0-20)
[2023-12-24] MEDS: VANCOMYCIN 1,000 MG in DEXTROSE 5%-WATER - 250 ML IVPB ONE (12:28)
[2023-12-24] MEDS: metFORMIN HCL 500 MG TABLET (FP) PO SCH (17:17)
[2023-12-24] MEDS: traMADol HCL 50 MG TABLET PO PRN (17:17)
[2023-12-24] MEDS: PIPERACILLIN/TAZOB 4.5 GM 4.5 GM in DEXTROSE 5%-WATER 100 ML IVPB SCH (17:17)
[2023-12-24] MEDS: NICOTINE 21 MG/24 HOURS TOPICAL PATCH TD SCH (17:18)
[2023-12-24] MEDS: ALBUTEROL SO4 HFA INHALER IH SCH (19:04)
[2023-12-24] MEDS: PANTOPRAZOLE 40 MG TABLET PO SCH (21:41)
[2023-12-24] MEDS: MAGNESIUM OXIDE 400 MG TABLET (FP) PO SCH (21:41)
[2023-12-24] MEDS: FOLIC ACID 1 MG TABLET (FP) PO SCH (21:41)
[2023-12-24] MEDS: APIXABAN 5 MG TABLET PO SCH (21:41)
[2023-12-24] MEDS: ATORVASTATIN CA 80 MG TABLET (FP) PO SCH (21:42)
[2023-12-25] MEDS: LORazepam 1 MG TABLET PO PRN (01:14)
[2023-12-25] MEDS: LEVOTHYROXINE NA 75 MCG TABLET (FP) PO SCH (06:17)
[2023-12-25] MEDS: sitaGLIPtin PHOSPHATE 50 MG TABLET PO SCH (06:21)
[2023-12-25] MEDS ORDERED: ACETAMINOPHEN 1000 MG/100 ML BAG IVPB PRN (10:07)
[2023-12-25] MEDS: THIAMINE 100 MG TABLET PO SCH (10:42)
[2023-12-25] MEDS: LISINOPRIL 5 MG TABLET PO SCH (10:42)
[2023-12-25] MEDS: ASPIRIN 81 MG CHEWABLE TABLETS PO SCH (10:42)
[2023-12-25 11:34] LABS: BASO % 0.7 % (0-2.0); EOS % 5.4 % (0-4.5); HEMATOCRIT 26.7 % (35.4-49); HEMOGLOBIN 8.7 GM/dL (11.7-16.9); LYMPH % 17.2 % (8-40); MCH 26.3 pg (25.7-33.7); MCHC 32.6 g/dl (32.0-35.9); MEAN CELL VOLUME 80.7 fl (80-96); MEAN PLT VOLUME 7.8 fl (7.5-11.1); MONO % 10.2 % (3.8-10.2); NEUT % 66.5 % (42.8-82.8); PLATELET COUNT 313 10^3/uL (134-434); RBC 3.31 M/mm3 (4.00-5.60); RDW 19.2 % (11.9-15.9); WHITE BLOOD COUNT 7.6 K/mm3 (4.0-10.0)
[2023-12-25 11:53] LABS: POTASSIUM 3.8 mmol/L (3.5-5.1)
[2023-12-25 11:56] LABS: ALBUMIN 3.2 g/dl (3.4-5.0); BLOOD UREA NITROGEN 9.7 mg/dL (7-18)
[2023-12-25 11:59] LABS: CREATININE 0.8 mg/dL (0.55-1.3)
[2023-12-25 12:00] LABS: BILIRUBIN,TOTAL 0.6 mg/dL (0.2-1); TOT PROT 6.8 g/dl (6.4-8.2)
[2023-12-25] MEDS: FLUTICASONE/UMECLIDIN/VILANTER(100-62.5-25 TRELEGY ELLIPTA) INAHLER IH SCH (14:51)
[2023-12-25] MEDS: PIPERACILLIN/TAZOB 4.5 GM 4.5 GM in DEXTROSE 5%-WATER 100 ML IVPB SCH (16:14)
[2023-12-25] MEDS ORDERED: chlordiazePOXIDE HCL 25 MG CAPSULE PO PRN (22:22)
[2023-12-25] MEDS: THIAMINE HCL 200 MG/2 ML VIAL IVPB SCH (22:45)
[2023-12-25] MEDS: PRAMIPEXOLE DIHYDROCHLORIDE 0.25 MG TABLET PO SCH (22:59)
[2023-12-26 08:00] LABS: MAGNESIUM 1.4 mg/dL (1.8-2.4)
[2023-12-26] MEDS: PREGABALIN 100 MG CAPSULE PO SCH (10:46)
[2023-12-26] MEDS: chlordiazePOXIDE HCL 25 MG CAPSULE PO SCH (10:46)
[2023-12-26] MEDS: THIAMINE 100 MG TABLET PO SCH (10:50)
[2023-12-26 13:08] VITALS: BMI 21.7
[2023-12-26] MEDS ORDERED: CYCLOBENZAPRINE HCL 5 MG TABLET PO ONE (22:30)
[2023-12-27] MEDS: MAGNESIUM SULFATE IN WATER 2 GM/50 ML IVPB IVPB ONE (00:48)
[2023-12-27 10:17] LABS: BASO % 0.6 % (0-2.0); EOS % 5.9 % (0-4.5); HEMATOCRIT 31.7 % (35.4-49); HEMOGLOBIN 10.2 GM/dL (11.7-16.9); LYMPH % 19.4 % (8-40); MCH 26.2 pg (25.7-33.7); MCHC 32.3 g/dl (32.0-35.9); MEAN CELL VOLUME 81.1 fl (80-96); MONO % 11.7 % (3.8-10.2); NEUT % 62.4 % (42.8-82.8); PLATELET COUNT 382 10^3/uL (134-434); RBC 3.91 M/mm3 (4.00-5.60); RDW 19.4 % (11.9-15.9); WHITE BLOOD COUNT 8.7 K/mm3 (4.0-10.0)
[2023-12-27 10:45] LABS: POTASSIUM 3.9 mmol/L (3.5-5.1)
[2023-12-27 10:47] LABS: ALBUMIN 3.2 g/dl (3.4-5.0); BLOOD UREA NITROGEN 11.7 mg/dL (7-18); CALCIUM 9.4 mg/dL (8.5-10.1)
[2023-12-27 10:50] LABS: CREATININE 0.8 mg/dL (0.55-1.3)
[2023-12-27 10:52] LABS: BILIRUBIN,TOTAL 0.9 mg/dL (0.2-1); TOT PROT 7.5 g/dl (6.4-8.2)
[2023-12-27] MEDS: CYCLOBENZAPRINE HCL 5 MG TABLET PO ONE (22:04)
[2023-12-28] MEDS: CYCLOBENZAPRINE HCL 10 MG TABLET (FP) PO SCH (09:20)
[2023-12-29] MEDS: ACETAMINOPHEN 325 MG TABLET (FP) PO PRN (20:59)
[2023-12-29] MEDS: chlordiazePOXIDE HCL 25 MG CAPSULE PO PRN (21:00)
[2023-12-30] MEDS: LORazepam 1 MG TABLET PO SCH (11:11)
[2023-12-31] MEDS ORDERED: chlordiazePOXIDE HCL 10 MG CAPSULE PO PRN
[2023-12-31] MEDS ORDERED: chlordiazePOXIDE HCL 10 MG CAPSULE PO SCH (05:00)
[2023-12-31] MEDS ORDERED: INSULIN (NOVOLOG) ASPART 100 UNITS/ML 10ML VIAL ONE (06:49)
[2023-12-31 09:59] LABS: BASO % 0.9 % (0-2.0); EOS % 6.6 % (0-4.5); HEMATOCRIT 30.4 % (35.4-49); HEMOGLOBIN 9.7 GM/dL (11.7-16.9); LYMPH % 26.1 % (8-40); MCH 25.6 pg (25.7-33.7); MCHC 31.9 g/dl (32.0-35.9); MEAN CELL VOLUME 80.3 fl (80-96); MEAN PLT VOLUME 8.2 fl (7.5-11.1); MONO % 9.7 % (3.8-10.2); NEUT % 56.7 % (42.8-82.8); PLATELET COUNT 496 10^3/uL (134-434); RBC 3.79 M/mm3 (4.00-5.60); RDW 19.1 % (11.9-15.9); WHITE BLOOD COUNT 7.2 K/mm3 (4.0-10.0)
[2023-12-31 10:09] LABS: ALBUMIN 3.2 g/dl (3.4-5.0); CALCIUM 9.8 mg/dL (8.5-10.1)
[2023-12-31 10:10] LABS: BLOOD UREA NITROGEN 10.5 mg/dL (7-18)
[2023-12-31 10:13] LABS: CREATININE 0.7 mg/dL (0.55-1.3)
[2023-12-31 10:14] LABS: BILIRUBIN,TOTAL 0.8 mg/dL (0.2-1); TOT PROT 7.5 g/dl (6.4-8.2)
[2023-12-31] MEDS ORDERED: LIDOCAINE HCL 1%, 10 MG/ML (20ML VIAL) ONE (13:42)
[2023-12-31] MEDS ORDERED: HEPARIN NA (PORCINE) 5,000 UNITS/ML 1ML VIAL ONE (13:42)
[2023-12-31] MEDS ORDERED: PROPOFOL 20 ML ONE (17:03)
[2023-12-31] MEDS ORDERED: MIDAZOLAM HCL 2 MG/2 ML SINGLE DOSE VIAL ONE (17:03)
[2023-12-31] MEDS ORDERED: FENTANYL CITRATE/PF 50 MCG/ML VIAL ONE ×2 (17:03→19:46)
[2023-12-31] MEDS ORDERED: ONDANSETRON 4 MG/2 ML VIAL IVPUSH PRN ×2 (17:29→20:00)
[2023-12-31] MEDS ORDERED: PROMETHAZINE HCL 25 MG/1 ML VIAL IVPB PRN ×2 (17:29→20:00)
[2023-12-31] MEDS ORDERED: ceFAZolin SODIUM 1 GM VIAL ONE (18:24)
[2023-12-31] MEDS ORDERED: SODIUM CHLORIDE 0.9% P/F 10 ML VIAL IJ ONE (18:24)
[2023-12-31] MEDS: ceFAZolin SODIUM 1 GM VIAL IVPB ONE (18:29)
[2023-12-31] MEDS ORDERED: LIDOCAINE HCL/PF 2% SDV 5ML VIAL ONE (18:33)
[2023-12-31] MEDS: LIDOCAINE 1% P/F 10 MG/ML VIAL INF ONE ×3 (18:42→18:48)
[2023-12-31] MEDS: LACTATED RINGERS SOLUTION 1,000 ML IV SCH (20:00)
[2023-12-31] MEDS: PANTOPRAZOLE 40 MG TABLET PO SCH (22:17)
[2023-12-31] MEDS: LORazepam 1 MG TABLET PO SCH (22:17)
[2023-12-31] MEDS: MAGNESIUM OXIDE 400 MG TABLET (FP) PO SCH (22:17)
[2023-12-31] MEDS: FOLIC ACID 1 MG TABLET (FP) PO SCH (22:17)
[2023-12-31] MEDS: ATORVASTATIN CA 80 MG TABLET (FP) PO SCH (22:17)
[2023-12-31] MEDS: APIXABAN 5 MG TABLET PO SCH (22:17)
[2023-12-31] MEDS: PRAMIPEXOLE DIHYDROCHLORIDE 0.25 MG TABLET PO SCH (22:18)
[2023-12-31] MEDS: PREGABALIN 100 MG CAPSULE PO SCH (22:18)
[2023-12-31] MEDS: ALBUTEROL SO4 HFA INHALER IH SCH (22:18)
[2024-01-01] MEDS: LACTATED RINGERS SOLUTION 1,000 ML IV SCH (02:38)
[2024-01-01] MEDS ORDERED: chlordiazePOXIDE HCL 10 MG CAPSULE PO SCH (05:00)
[2024-01-01] MEDS: metFORMIN HCL 500 MG TABLET (FP) PO SCH (06:06)
[2024-01-01] MEDS: LEVOTHYROXINE NA 75 MCG TABLET (FP) PO SCH (06:07)
[2024-01-01] MEDS: sitaGLIPtin PHOSPHATE 50 MG TABLET PO SCH (06:07)
[2024-01-01 08:26] LABS: BASO % 0.6 % (0-2.0); EOS % 1.4 % (0-4.5); HEMATOCRIT 27.6 % (35.4-49); MCH 25.8 pg (25.7-33.7); MCHC 32.6 g/dl (32.0-35.9); MEAN CELL VOLUME 79.3 fl (80-96); MEAN PLT VOLUME 8.3 fl (7.5-11.1); MONO % 6.4 % (3.8-10.2); NEUT % 82.6 % (42.8-82.8); PLATELET COUNT 472 10^3/uL (134-434); RBC 3.48 M/mm3 (4.00-5.60); RDW 18.8 % (11.9-15.9); WHITE BLOOD COUNT 11.7 K/mm3 (4.0-10.0)
[2024-01-01 08:32] LABS: POTASSIUM 4.1 mmol/L (3.5-5.1)
[2024-01-01 08:46] LABS: ALBUMIN 3.1 g/dl (3.4-5.0); BLOOD UREA NITROGEN 10.4 mg/dL (7-18)
[2024-01-01 08:49] LABS: CREATININE 0.6 mg/dL (0.55-1.3)
[2024-01-01 08:50] LABS: TOT PROT 6.9 g/dl (6.4-8.2)
[2024-01-01 08:51] LABS: BILIRUBIN,TOTAL 0.9 mg/dL (0.2-1)
[2024-01-01] MEDS: CYCLOBENZAPRINE HCL 10 MG TABLET (FP) PO SCH (10:06)
[2024-01-01] MEDS: LISINOPRIL 5 MG TABLET PO SCH (10:28)
[2024-01-01] MEDS: THIAMINE 100 MG TABLET PO SCH (10:29)
[2024-01-01] MEDS: ASPIRIN 81 MG CHEWABLE TABLETS PO SCH (10:29)
[2024-01-01] MEDS: FLUTICASONE/UMECLIDIN/VILANTER(100-62.5-25 TRELEGY ELLIPTA) INAHLER IH SCH (10:33)
[2024-01-01] MEDS: NICOTINE 21 MG/24 HOURS TOPICAL PATCH TD SCH (10:33)
[2024-01-01] MEDS: PREGABALIN 50 MG CAPSULE PO SCH (21:50)
[2024-01-01] MEDS: ACETAMINOPHEN 325 MG TABLET (FP) PO PRN (21:51)
[2024-01-01 22:02] LABS: PHENCYCLIDINE,URINE NEGATIVE (NEGATIVE); URINE BARBITURATES NEGATIVE (NEGATIVE)
[2024-01-01 22:03] LABS: METHADONE, UR NEGATIVE (NEGATIVE); OPIATES, URI NEGATIVE (NEGATIVE)
[2024-01-01 22:05] LABS: COCAINE, UR NEGATIVE (NEGATIVE); URINE AMPHETAMINES NEGATIVE (NEGATIVE); URINE BENZODIAZEPINES POSITIVE (NEGATIVE)
[2024-01-02] MEDS ORDERED: chlordiazePOXIDE HCL 10 MG CAPSULE PO ONE (05:00)
[2024-01-02 13:00] LABS: BASO % 0.7 % (0-2.0); EOS % 4.8 % (0-4.5); HEMATOCRIT 30.3 % (35.4-49); HEMOGLOBIN 9.9 GM/dL (11.7-16.9); LYMPH % 19.4 % (8-40); MCH 25.8 pg (25.7-33.7); MCHC 32.5 g/dl (32.0-35.9); MEAN CELL VOLUME 79.3 fl (80-96); MEAN PLT VOLUME 8.2 fl (7.5-11.1); MONO % 10.4 % (3.8-10.2); NEUT % 64.7 % (42.8-82.8); PLATELET COUNT 513 10^3/uL (134-434); RBC 3.82 M/mm3 (4.00-5.60); RDW 19.3 % (11.9-15.9); WHITE BLOOD COUNT 9.4 K/mm3 (4.0-10.0)
[2024-01-02 13:27] LABS: POTASSIUM 3.8 mmol/L (3.5-5.1)
[2024-01-02 13:28] LABS: CALCIUM 9.1 mg/dL (8.5-10.1)
[2024-01-02 13:29] LABS: ALBUMIN 3.3 g/dl (3.4-5.0); BLOOD UREA NITROGEN 10.9 mg/dL (7-18)
[2024-01-02 13:32] LABS: CREATININE 0.7 mg/dL (0.55-1.3)
[2024-01-02 13:34] LABS: BILIRUBIN,TOTAL 0.7 mg/dL (0.2-1); TOT PROT 7.4 g/dl (6.4-8.2)
[2024-01-02 15:43] VITALS: BP 160/90; PULSE 92; RESP 18; TEMP 99
== END 2024-01-02 19:27 | disposition home or self-care (01) | DRG 181 ==
LOC: JER 08:47 → JERBED 12:36 → J8W 15:44
PROVIDERS: ADMIT Internal Medicine; ATTEND Internal Medicine
PROC: HZ2ZZZZ Detoxification Services for Substance Abuse Treatment (ICD-10-PCS; 2023-12-24)
PROC: 04CK3ZZ Extirpation of Matter from Right Femoral Artery, Percutaneous Approach (ICD-10-PCS; 2023-12-31)
PROC: B40DYZZ Plain Radiography of Aorta and Bilateral Lower Extremity Arteries using Other Contrast (ICD-10-PCS; 2023-12-31)
PROC: B40FYZZ Plain Radiography of Right Lower Extremity Arteries using Other Contrast (ICD-10-PCS; 2023-12-31)
PROC: 047K341 Dilation of Right Femoral Artery with Drug-eluting Intraluminal Device, using Drug-Coated Balloon, Percutaneous Approach (ICD-10-PCS; 2023-12-31)
PROC: 04CK3ZZ Extirpation of Matter from Right Femoral Artery, Percutaneous Approach (ICD-10-PCS; principal; 2023-12-31 17:30)
DX: E11.51 Type 2 diabetes mellitus with diabetic peripheral angiopathy without gangrene (principal); I70.201 Unspecified atherosclerosis of native arteries of extremities, right leg; L03.115 Cellulitis of right lower limb; E78.5 Hyperlipidemia, unspecified; K21.9 Gastro-esophageal reflux disease without esophagitis; E78.00 Pure hypercholesterolemia, unspecified; J44.9 Chronic obstructive pulmonary disease, unspecified; N40.0 Benign prostatic hyperplasia without lower urinary tract symptoms; E03.9 Hypothyroidism, unspecified; G25.81 Restless legs syndrome; G43.909 Migraine, unspecified, not intractable, without status migrainosus; F10.239 Alcohol dependence with withdrawal, unspecified; M79.671 Pain in right foot; E87.1 Hypo-osmolality and hyponatremia; E11.42 Type 2 diabetes mellitus with diabetic polyneuropathy; M54.31 Sciatica, right side; I25.10 Atherosclerotic heart disease of native coronary artery without angina pectoris; I11.0 Hypertensive heart disease with heart failure; I50.32 Chronic diastolic (congestive) heart failure; Z95.1 Presence of aortocoronary bypass graft
CPT/HCPCS: 36415; 70450-TC; 71046-TC-FY; 73610-TC-RT-FY; 73630-TC-RT-FY; 76000-TC-FY; 80053; 80307; 82140; 82607; 82962; 83036; 83540; 83550; 83605; 83735; 83880; 84100; 84443; 84484; 85025; 85651; 86140; 87040; 93005; 93010; 93926-TC; 93970-TC; 94760; 97116-GP; 97161-GP; 99285-25; C1725; C1760; C1876; C2623; J1644